=== PATIENT | female | born 1990 | race Caucasian/White ===

== ENCOUNTER 2021-05-16 11:17 | Outpatient (REF) | payer OTHER, SELFPAY ==
[2021-05-16 12:21] LABS: Influenza A PCR NEGATIVE (Negative); Influenza B PCR NEGATIVE (Negative); Resp Syncy Virus RNA Qual PCR NEGATIVE (Negative); SARS COV2 PCR INHOUSE NEGATIVE (Negative)
== END 2021-05-16 11:18 | disposition home or self-care (01) ==
LOC: HO.LNP 11:17
PROVIDERS: Visit Provider Internal Medicine
DX: R43.9 Unspecified disturbances of smell and taste (principal); Z20.822 Contact with and (suspected) exposure to COVID-19
CPT/HCPCS: 0241U

== ENCOUNTER 2021-12-21 22:10 | Emergency (ER) | payer OTHER, SELFPAY ==
--- NOTE | ~2021-12-21 | CT_ITS ---
EXAMINATION: CT HEAD WITHOUT CONTRAST CLINICAL INFORMATION: EtOH. Fall. Loss of consciousness. COMPARISON: CT head from 09/17/2007. TECHNIQUE: Contiguous axial imaging was performed from the skull base to vertex without intravenous administration of contrast. This CT examination was performed using dose optimization techniques as appropriate, variously including the following: *Automated exposure control. *Adjustment of mA and/or kV according to patient size (this includes techniques or standardized protocols for targeted exams where dose is matched to indication/reason for exam; i.e. extremities or head). *Use of iterative reconstruction technique. DLP: 631 mGy-cm FINDINGS: There is no evidence of acute intracranial hemorrhage or edematous territorial infarction. There is no abnormal attenuation within the brain parenchyma. Swartz-white matter differentiation is preserved. The ventricles are normal in size and configuration. No evidence for obstructive hydrocephalus. No abnormal mass effect or midline shift. No extra-axial fluid collections. No acute soft tissue or osseous abnormalities. Moderate mucosal thickening of the visualized paranasal sinuses. Small layering fluid collections within the bilateral maxillary sinuses. Mild leftward nasal septal deviation. Small right-sided mastoid effusion. The left-sided mastoid air cells and middle ear cavity are clear. CT/CT head/brain wo con IMPRESSION: 1. No evidence of acute intracranial hemorrhage or edematous territorial infarction. 2. Moderate sinonasal mucosal disease.
--- NOTE | 2021-12-21 22:13 | ED.ALCOHOL ---
HPI - Alcohol General Stated Complaint: etoh and fall Related Data Home Medications Medication Instructions Recorded Confirmed albuterol sulfate 90 mcg/actuation 1 inh inhalation Q4H PRN 08/17/20 08/17/20 breath activated powder inhaler fluticasone 232 mcg-salmeterol 14 1 inh inhalation BID 08/17/20 08/17/20 mcg/actuation breath activated powdr multivitamin (Daily Multi-Vitamin) 1 tab PO DAILY 08/17/20 08/17/20 Previous Rx's Medication Instructions Recorded hydrocortisone 2.5 % topical cream 1 appl topical BEDTIME PRN skin 08/17/20 irritation 30 days #30 grams fluticasone propionate 50 1 spray intranasal DAILY #9.9 mL 05/16/21 mcg/actuation nasal spray,suspension (Flonase Allergy Relief) Allergies Allergy/AdvReac Type Severity Reaction Status Date / Time animal dander [ANIMAL HAIR] Allergy Unknown HIVES Unverified 05/16/21 09:51 apple Allergy Unknown unknown Verified 05/16/21 09:51 cat dander Allergy Unknown unknown Verified 05/16/21 09:51 dog dander Allergy Unknown unknown Verified 05/16/21 09:51 house dust Allergy Unknown unknown Verified 05/16/21 09:51 SEASONAL ALLERGIES Allergy Mild CONGESTION Uncoded 05/16/21 09:51 CILANTRO Allergy Unknown ANGIOEDEMA Uncoded 05/16/21 09:51 [facility] Family History Family History (Updated 08/31/20 @ 10:53 by Kandy Acosta, RMA, LIME VAT TENDER) Father No problems noted. Mother No problems noted. Maternal Grandmother No problems noted. Maternal Grandfather HTN (hypertension) Diabetes mellitus High cholesterol Discharge Plan Discharge Prescriptions: No Action multivitamin [Daily Multi-Vitamin] Tablet 1 tab PO DAILY fluticasone propion-salmeterol 232-14 mcg/actuation aerosol powdr breath activated 1 inh inhalation BID albuterol sulfate 90 mcg/actuation aerosol powdr breath activated 1 inh inhalation Q4H PRN hydrocortisone 2.5 % cream 1 appl topical BEDTIME PRN (Reason: skin irritation) 30 Days Qty: 30 0RF fluticasone propionate [Flonase Allergy Relief] 50 mcg/actuation spray,suspension 1 spray intranasal DAILY Qty: 9.9 1RF Rx Instructions: administer into each nostril
[2021-12-21 22:19] VITALS: BP 116/64; BP 124/60; PULSE 79; PULSE 80; RESP 18; O2SAT 97; O2SAT 98; BMI 24.9
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
[2021-12-21 23:17] LABS: UPreg QC Valid YES; Urine Pregnancy NEGATIVE (NEGATIVE)
== END 2021-12-22 00:03 | disposition home or self-care (01) ==
PROVIDERS: Nurse Practitioner Family; Emergency Provider Emergency Medicine; PCP Internal Medicine
DX: S09.90XA Unspecified injury of head, initial encounter (principal); S00.83XA Contusion of other part of head, initial encounter; W17.89XA Other fall from one level to another, initial encounter; Y93.01 Activity, walking, marching and hiking; Y92.511 Restaurant or cafe as the place of occurrence of the external cause; Y99.9 Unspecified external cause status
CPT/HCPCS: 70450; 81025; 99283; 99284

== ENCOUNTER 2022-09-11 18:54 | Emergency (ER) | payer OTHER, SELFPAY ==
[2022-09-11 19:02] VITALS: BMI 25.7
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
[2022-09-11 19:12] VITALS: BP 113/62; PULSE 67; RESP 15; TEMP 36.4; O2SAT 93
[2022-09-11 19:16] VITALS: O2SAT 97
[2022-09-11 19:48] LABS: MANUAL DIFF FLAG NO
[2022-09-11 19:56] LABS: Basophils Percent Auto 0.5 % (0-2); Eosinophils Absolute Auto 0.7 X10*3/uL (0.0-0.4); Eosinophils Percent Auto 11.6 % (0-4); Hematocrit 39.3 % (37.0-47.0); Hemoglobin 13.3 g/dl (12.0-16.0); Imm Gran Abs Auto 0.01 X10*3/uL (0.00-0.03); Imm Gran Pct Auto 0.2 % (0.0-0.4); Lymphocytes Absolute Auto 1.5 X10*3/uL (1.2-4.9); Lymphocytes Percent Auto 25.7 % (20-40); Mean Corpuscular HGB Conc 33.8 g/dl (31.0-35.0); Mean Corpuscular Hemoglobin 30.4 pg (27.0-33.0); Mean Corpuscular Volume 89.7 fL (80.0-98.0); Mean Platelet Volume 9.8 fL (9.4-12.3); Monocytes Absolute Auto 0.3 X10*3/uL (0.1-1.2); Monocytes Percent Auto 5.8 % (2-11); Neutrophils Absolute Auto 3.2 x10*3/uL (2.0-8.3); Neutrophils Percent Auto 56.2 % (45-73); Platelet Count 237 X10*3/uL (160-400); Red Blood Count 4.38 X10*6/uL (4.20-5.50); Red Cell Distribution Width 12.7 % (11.0-16.0); White Blood Count 5.7 X10*3/uL (4.8-10.8)
[2022-09-11 20:03] LABS: Amphetamine Screen Urine Not Detected (Not Detect); Barbiturates, Urine Not Detected (Not Detect); Benzodiazepines Screen Urine Not Detected (Not Detect); Cannabinoid Screen Urine Not Detected (Not Detect); Cocaine Screen Urine Not Detected (Not Detect); Fentanyl, urine Not Detected (Not Detect); Opiate Screen Urine Not Detected (Not Detect); Phencyclidine Screen Urine Not Detected (Not Detect)
[2022-09-11 20:10] LABS: COVID-19 Test Negative (Negative); IDNOW Serial# BCCEAD1C
[2022-09-11 20:11] LABS: Acetaminophen LAB < 17 mcg/mL (<30); Alanine Aminotransferase 20 U/L (0-31); Albumin Level 4.4 g/dL (3.5-5.0); Alkaline Phosphatase 106 U/L (39-117); Anion Gap 13 (12-20); Aspartate Amino Transferase 17 U/L (5-31); Bilirubin Total 0.2 mg/dL (0.0-1.0); Blood Urea Nitrogen 7 mg/dL (9-16); Calcium 8.8 mg/dL (8.4-10.2); Carbon Dioxide 23 mmol/L (22-29); Chloride 112 mmol/L (96-108); Creatinine Clr Calc Pharmacy 108.9; Estimated Glomerular Filt Rate > 60; Ethanol 169 mg/dL; Glucose Random 104 mg/dL (60-115); Potassium 3.7 mmol/L (3.3-5.1); Salicylate < 5.0 mg/dL (15-30); Sodium 144 mmol/L (135-145); Total Protein 7.1 g/dL (6.5-8.0)
--- NOTE | 2022-09-11 21:28 | MHC.EDTECH ---
This tech brought patient to pump in the linen closet to give her privacy,this tech stayed one on one with patient until finished.Rn aware
[2022-09-11] MEDS: diphenhydrAMINE HCL 25 MG CAPSULE PO (22:25)
[2022-09-11] MEDS: clonazePAM 0.5 MG TABLET PO (22:25)
[2022-09-11] MEDS: OLANZapine 5 MG TABLET PO (22:25)
[2022-09-11 22:52] LABS: Appearance Urine Clear; Color Urine Yellow; Glucose Urine UA Negative (Negative); Leukocyte Esterase Urine Negative (Negative); Nitrite Urine Negative (Negative); PH 6.5 (5.0-9.0); Specific Gravity - Urine <= 1.005 (1.005-1.025); Urine Blood Negative (Negative); Urine Ketones Negative (Negative); Urine Protein Negative (Neg-Trace)
[2022-09-12 03:38] VITALS: BP 112/56; PULSE 74; RESP 15; TEMP 36.4; O2SAT 96
--- NOTE | 2022-09-12 06:09 | PC.NURSE ---
Patient slept through the night, no distress observed/reported, Olanzapine 5 mg PO administered at 2225 with PRN Klonopin and Benadryl with + effect, behavior non concerning, mood labile, tearful at time, medication compliant, VSS, patient needs help with breast pump, will continue to monitor.
[2022-09-12] MEDS: Loratadine 10 MG TABLET PO (08:20)
--- NOTE | 2022-09-12 08:34 | PC.NURSE ---
Called pharmacy for medication that is not available in the ED. Pts bedside for a visit.
[2022-09-12] MEDS: Vortioxetine Hydrobromide 20 MG TABLET PO (09:44)
[2022-09-12 09:47] VITALS: BP 123/51; PULSE 84; RESP 19; TEMP 36.2; O2SAT 98
--- NOTE | 2022-09-12 11:36 | PM.PSYCN ---
History of Present Illness Date of Service: 09/12/2022 Chief Complaint: crisis Reason for Consult: SI Discussed with referring provider: Yes Sources of Information: patient interviewed, chart reviewed and crisis/core team assessment reviewed HPI Narrative: Mrs. Whittington is a 31 year-old mother of two who self presented to [facility] [place] ED reporting increase depression, and thoughts of demons getting into her house. In the ED utox is negative. Pt seen with by her side. Pt reports increased depressed mood for few months. She does report she has struggled with depression for several years and feels that antidepresant, Trintellix has been very beneficial. However, after she had her now 1 year old baby she decrease dose of trintellix as she is currently . Pt also reports some recurrent thoughts about bad energy coming from her phone. She reports as she thinks about this, it sounds crazy, I know it not real. She denies any visual or auditory hallucinations. reports he notes that she has been more depressed, no safety concerns in terms of suicidal or homicidal ideation. denies any signs of psychosis or delusional thinking. He does report it was brief report of fear due to demons. She has a psychiatric prescriber. No therapist. She is open to increase dose of trintellix. She adamantly denies any thoughts of wanting to hurt herself or others. also denies any safety concerns and advocate for discharge home with additional supports, mainly referral for therapy. No prior hx of suicide attempts. Medical Evaluation Reviewed: Yes [facility] Medical History Concussion Depression Seasonal allergies Diagnostics Vital Signs (24Hr): Vital Signs - 24 hr 09/11/22 19:12 09/11/22 19:16 09/12/22 03:38 Temperature 97.6 F 97.6 F Pulse Rate 67 74 Respiratory Rate 15 15 Blood Pressure 113/62 112/56 L Pulse Oximetry 93 97 96 Oxygen Delivery Method Room Air Room Air Room Air 09/12/22 09:47 Temperature 97.1 F Pulse Rate 84 Respiratory Rate 19 Blood Pressure 123/51 L Pulse Oximetry 98 Oxygen Delivery Method Room Air BMI result Body Mass Index 25.7 Labs 09/11/22 19:36 09/11/22 19:36 Labs: Laboratory Results - last 48 hr 09/11/22 09/11/22 09/11/22 19:36 19:36 19:36 WBC 5.7 RBC 4.38 Hgb 13.3 Hct 39.3 MCV 89.7 MCH 30.4 MCHC 33.8 RDW 12.7 Plt Count 237 MPV 9.8 Immature Gran % (Auto) 0.2 Neut % (Auto) 56.2 Lymph % (Auto) 25.7 [place] % (Auto) 5.8 Eos % (Auto) 11.6 H Baso % (Auto) 0.5 Lymph # (Auto) 1.5 [place] # (Auto) 0.3 Eos # (Auto) 0.7 H Baso # (Auto) 0.0 Abs Immat Gran (auto) 0.01 Absolute Neuts (auto) 3.2 Absolute Nucleated RBC 0.000 Nucleated RBC % (auto) 0.0 Sodium 144 Potassium 3.7 Chloride 112 H Carbon Dioxide 23 Anion Gap 13 BUN 7 L Creatinine 0.60 Estim Creat Clear Calc 108.9 Estimated GFR > 60 Random Glucose 104 Calcium 8.8 Magnesium 2.0 Total Bilirubin 0.2 AST 17 ALT 20 Alkaline Phosphatase 106 Total Protein 7.1 Albumin 4.4 Urine Color Urine Appearance Urine pH Ur Specific [place] Urine Protein Urine Glucose (UA) Urine Ketones Urine Blood Urine Nitrite Ur Leukocyte Esterase Salicylates < 5.0 L Urine Opiates Screen Urine Fentanyl Screen Acetaminophen < 17 Ur Barbiturates Screen Ur Phencyclidine Scrn Ur Amphetamines Screen U Benzodiazepines Scrn Urine Cocaine Screen U Marijuana (THC) Screen Ethyl Alcohol 169 COVID-19 (DINO) Negative COVID-19 Clin Com See Note 09/11/22 09/11/22 19:41 19:41 WBC RBC Hgb Hct MCV MCH MCHC RDW Plt Count MPV Immature Gran % (Auto) Neut % (Auto) Lymph % (Auto) [place] % (Auto) Eos % (Auto) Baso % (Auto) Lymph # (Auto) [place] # (Auto) Eos # (Auto) Baso # (Auto) Abs Immat Gran (auto) Absolute Neuts (auto) Absolute Nucleated RBC Nucleated RBC % (auto) Sodium Potassium Chloride Carbon Dioxide Anion Gap BUN Creatinine Estim Creat Clear Calc Estimated GFR Random Glucose Calcium Magnesium Total Bilirubin AST ALT Alkaline Phosphatase Total Protein Albumin Urine Color Yellow Urine Appearance Clear Urine pH 6.5 Ur Specific [place] <= 1.005 Urine Protein Negative Urine Glucose (UA) Negative Urine Ketones Negative Urine Blood Negative Urine Nitrite Negative Ur Leukocyte Esterase Negative Salicylates Urine Opiates Screen Not Detected Urine Fentanyl Screen Not Detected Acetaminophen Ur Barbiturates Screen Not Detected Ur Phencyclidine Scrn Not Detected Ur Amphetamines Screen Not Detected U Benzodiazepines Scrn Not Detected Urine Cocaine Screen Not Detected U Marijuana (THC) Screen Not Detected Ethyl Alcohol COVID-19 (DINO) COVID-19 Clin Com Mental Status Exam Mental Status Exam Narrative: Appearance: wearing hospital gown, fair hygiene, in NAD Behavior: pleasant and cooperative TP: linear TC: no signs of psychosis, seeking additional help Speech: clear, normal rate/rhythm/volume, spontaneous Psychomotor: no agitation or retardation noted Mood: better Affect: congruent, brightens at times SI: denies HI: denies VH/AH: none Insight/judgment: fair x 2. Memory/cog: alert, oriented x 3. grossly intact to conversational testing. Medications Medications Current Medications Albuterol Sulfate (Albuterol Sulfate 90 Mcg 8 Gm Inhaler) 1 puff INHALE Q4H PRN PRN Reason: Shortness Of Breath Or Wheezing Clonazepam (Clonazepam 0.5 Mg Tablet) 0.5 mg PO BEDTIME PRN PRN Reason: Anxiety Last Admin: 09/11/22 22:25 Dose: 0.5 mg Diphenhydramine HCl (Diphenhydramine Hcl 25 Mg Capsule) 25 mg PO BEDTIME PRN PRN Reason: Insomnia Last Admin: 09/11/22 22:25 Dose: 25 mg Loratadine (Loratadine 10 Mg Tablet) 10 mg PO DAILY [facility] Last Admin: 09/12/22 08:20 Dose: 10 mg Vortioxetine (Vortioxetine Hydrobromide 20 Mg Tablet) 20 mg PO DAILY [facility] Last Admin: 09/12/22 09:44 Dose: 20 mg Allergies Allergies Allergy/AdvReac Type Severity Reaction Status Date / Time animal dander [ANIMAL HAIR] Allergy Unknown HIVES Unverified 05/16/21 09:51 apple Allergy Unknown unknown Verified 05/16/21 09:51 cat dander Allergy Unknown unknown Verified 05/16/21 09:51 dog dander Allergy Unknown unknown Verified 05/16/21 09:51 house dust Allergy Unknown unknown Verified 05/16/21 09:51 SEASONAL ALLERGIES Allergy Mild CONGESTION Uncoded 05/16/21 09:51 CILANTRO Allergy Unknown ANGIOEDEMA Uncoded 05/16/21 09:51 Assessment & Plan Assessment & Plan (1) MDD (major depressive disorder), recurrent episode, moderate: Status: Acute Code(s): F33.1 - Major depressive disorder, recurrent, moderate Plan Mrs. Whittington is a 31 year-old woman with hx of MDD. Pt reports long hx of depression, trauma. She reports argument with mother who disclosed trauma hx ot friend which really upset pt. Pt reports also some thoughts of demons coming to her house briefly but also notes that this makes no sense. Pt reports lower dose of trintellix since she gave over one year ago as she has been . She denies SI/HI. She reports coming to ED asking for additional supports such as therapy. by her side and denies safety concerns nor signs of psychosis. Pt has OP psychiatric prescribed with upcoming appointment. Pt open to increase dose. Total time managing care of this patient today ____ minutes.
--- NOTE | 2022-09-12 13:05 | MHC.CARE ---
Pt has been referred to [facility]
--- NOTE | 2022-09-12 13:05 | MHC.CARE ---
CARE Team has reached out to Ms. Miriam Torres, a psychiatrist that specializes in post partem depression. CARE Team awaits her response so that a referral can be done.
--- NOTE | 2022-09-12 13:40 | MHC.CARE ---
Pt has been referred to the [facility] virtual Partial Hospitalization program.
--- NOTE | 2022-09-12 14:02 | MHC.CARE ---
CARE Team referred pt to [facility]'s [facility]. CARE Team called pt to secure an e mail address, no answer, left a message to return call. The e mail address is necessary to the completion of this referral.
--- NOTE | 2022-09-13 08:58 | MHC.CARE ---
CARE Team left message for Pt
== END 2022-09-12 13:09 | disposition home or self-care (01) ==
PROVIDERS: Physician Assistant; Emergency Provider Emergency Medicine; PCP Internal Medicine
DX: O99.345 Other mental disorders complicating the puerperium (principal); Z20.822 Contact with and (suspected) exposure to COVID-19; Z20.828 Contact with and (suspected) exposure to other viral communicable diseases; Z79.899 Other long term (current) drug therapy
CPT/HCPCS: 36415; 80053; 80143; 80179; 80307; 81003; 82077; 83735; 85025; 87635; 99284; S9485

== ENCOUNTER 2023-02-24 01:59 | Emergency (ER) | payer OTHER, SELFPAY ==
[2023-02-24 02:05] VITALS: BP 129/72; BP 152/86; PULSE 80; PULSE 90; RESP 12; TEMP 36.4; O2SAT 97; O2SAT 99; BMI 26.4
--- NOTE | 2023-02-24 02:10 | ED.ALLEREA ---
HPI - Allergic Reaction General Chief complaint: Allergic Reaction Stated complaint: Allergic Reaction Time Seen by Provider: 02/24/23 02:07 Source: patient Mode of arrival: EMS Limitations: no limitations History of Present Illness HPI narrative: Patient comes to the emergency room complaining of an allergic reaction. Patient states that she is known to be highly allergic to cat dander. Patient states that she does have a cat. Usually she does not touch the cat. But patient touched this time because the cat was in a lot of pain. Patient washed her hands immediately but still she developed facial swelling, shortness of breath, wheezing. Patient give herself 2 nebulization treatments, took 2 tablets of Benadryl. Her symptoms improved. However, she still has facial swelling, flushing, no airway compromise. EMS brought her to the emergency room Related Data Home Medications Medication Instructions Recorded Confirmed albuterol sulfate 90 mcg/actuation 1 inh inhalation Q4H PRN Shortness 08/17/20 09/11/22 breath activated powder inhaler Of Breath Or Wheezing clonazepam 0.5 mg tablet 1 tab PO BEDTIME PRN Anxiety 09/11/22 09/11/22 diphenhydramine HCl 25 mg capsule 25 mg PO BEDTIME PRN Insomnia 09/11/22 09/11/22 (Benadryl) loratadine 10 mg tablet 10 mg PO QAM 09/11/22 09/11/22 vortioxetine 20 mg tablet 1 tab PO QAM 09/11/22 09/11/22 (Trintellix) Previous Rx's Medication Instructions Recorded epinephrine 0.3 mg/0.3 mL 0.3 mg (0.3 mL) IM Q4H PRN 02/24/23 injection, auto-injector (EpiPen) anaphylaxis #2 ea famotidine 20 mg tablet (Pepcid) 20 mg PO DAILY #3 tabs 02/24/23 prednisone 20 mg tablet 20 mg PO DAILY #3 tabs 02/24/23 Allergies Allergy/AdvReac Type Severity Reaction Status Date / Time animal dander [ANIMAL HAIR] Allergy Unknown HIVES Verified 02/24/23 02:47 apple Allergy Unknown unknown Verified 02/24/23 02:47 cat dander Allergy Unknown unknown Verified 02/24/23 02:47 dog dander Allergy Unknown unknown Verified 02/24/23 02:47 house dust Allergy Unknown unknown Verified 02/24/23 02:47 SEASONAL ALLERGIES Allergy Mild CONGESTION Uncoded 05/16/21 09:51 CILANTRO Allergy Unknown ANGIOEDEMA Uncoded 05/16/21 09:51 Review of Systems Review of Systems: Constitutional : No Weight loss, No Fever, No Chills, No Night Sweats, No Fatigue, No Malaise ENT/Mouth : No Hearing loss, No Ear Pain, No Nasal Congestion, No Sinus Pain, No Hoarseness, No sore throat, No Rhinorrhea, No Swallowing Difficulty Eyes: No Eye Pain, No Swelling, No Redness, No Foreign Body, No Discharge, No Vision Changes Cardiovascular : No Chest Pain, No SOB, No Dyspnea on Exertion, No Orthopnea, No Edema, No Palpitations Respiratory : Complaining of wheezing Gastrointestinal : No Nausea, No Vomiting, No Diarrhea, No Constipation, No abdominal Pain, No Hematochezia, No Melena Genitourinary : no irregular bleeding, No Dysuria, No Urinary Frequency, No Hematuria, No Urinary Incontinence, No Urgency, No Flank Pain, No Urinary Flow Changes, No Hesitancy Musculoskeletal : No joint pain, No Myalgias, No Joint Swelling Skin : Complaining of diffuse flushing and hives Neuro : No Weakness, No Numbness, No Paresthesias, No Loss of Consciousness, No Dizziness, No Headache Psych : No Anxiety/Panic, No Depression, No SI/HI/AH/VH, No Social Issues, Heme/Lymph: No Bruising, No Bleeding,No Lymphadenopathy Endocrine : No Polyuria, No Polydipsia, No Temperature Intolerance PMFSH Past Medical History Medical History Concussion Depression Seasonal allergies Family History Family History Father No problems noted. Mother No problems noted. Maternal Grandmother No problems noted. Maternal Grandfather HTN (hypertension) Diabetes mellitus High cholesterol Social History Social History Alcohol intake: current Alcohol intake frequency: 0-2 drinks per day Alcohol type: hard liquor Patient Tobacco Use Status: Former Tobacco user Advance Directives: No Advance Directives Information Provided: No Physical Exam ED Vital Signs: Vital Signs - 24 hr 02/24/23 02:05 02/24/23 03:20 Temperature 97.6 F 97.5 F Pulse Rate 80 91 Respiratory Rate 12 18 Blood Pressure 129/72 112/58 L Pulse Oximetry 97 99 Oxygen Delivery Method Room Air Room Air BMI result Body Mass Index 26.4 Const Other: Appearance: Alert. Oriented X3. No acute distress. Eyes: Pupils equal, round and reactive to light. ENT: Pharynx normal. No angioedema Neck: Normal inspection. Neck supple. No lymph nodes noted. No crepitus CVS: Normal heart rate and rhythm. Pulses normal. Normal S1 and S2 Respiratory: No respiratory distress. Breath sounds normal. No Wheezing. No rales Abdomen: Soft and nontender. No rigidity. No distention. Skin: Diffuse flushing, hives Extremities: No lower extremity edema. No Lacerations. No Rash Neuro: Oriented X 3. No motor deficit. No sensory deficit. Moving all extremities. No slurred speech. CN 2 through 12 grossly intact Psych: calm, cooperative, normal affect Course Course Course Narrative: Patient getting IV fluids, Benadryl, Pepcid, Solu-Medrol Medications Administered Discontinued Medications Generic Name Dose Route Start Last Admin Trade Name Freq PRN Reason Stop Dose Admin Diphenhydramine HCl 50 mg 02/24/23 02:07 02/24/23 02:19 Diphenhydramine Hcl 50 Mg/Ml Vial IVPUSH 02/24/23 02:08 50 mg ONCE ONE Administration Famotidine 20 mg 02/24/23 02:07 02/24/23 02:19 Famotidine/Pf 20 Mg/2 Ml Vial IVPUSH 02/24/23 02:08 20 mg ONCE ONE Administration Hydroxyzine HCl 25 mg 02/24/23 03:43 02/24/23 03:52 Hydroxyzine Hcl 25 Mg Tablet PO 02/24/23 03:44 25 mg ONCE ONE Administration Sodium Chloride 1,000 mls @ 999 mls/hr 02/24/23 02:15 02/24/23 02:48 Ns IVCONT 02/24/23 03:15 999 mls/hr .Q1H1M ONE Administration Methylprednisolone Sodium Succinate 125 mg 02/24/23 02:07 02/24/23 02:19 Methylprednisolone Sod Succ 125 Mg/2 Ml Vial IVPUSH 02/24/23 02:08 125 mg ONCE ONE Administration Ondansetron HCl 4 mg 02/24/23 03:10 02/24/23 03:52 Ondansetron Hcl 4 Mg/2 Ml Vial IVPUSH 02/24/23 03:11 4 mg ONCE ONE Administration Medical Decision Making Medical Decision Making MDM Narrative: -30 medications, patient started feeling much better, the hives disappeared, airway completely clear, no wheezing. Patient stated that she felt a little bit itchy, given 1 dose of hydroxyzine. After that dose, patient is asymptomatic. -discussed with the patient talking to his primary care physician about a referral to immunology, patient has severe allergies to multiple very common allergens Differential Diagnosis Differential Diagnoses: The differential diagnosis associated with the presentation includes (Allergic reaction, anaphylaxis, urticaria) Admission/Observation Consideration of admission/observation: Escalation of care including admission/observation considered (Patient came in with a significant allergic reaction, patient was considered) Critical Care Time Critical Care Time Critical Care Time: Yes Total Critical Care Time: 60 Attestation: I have personally provided critical care time. Time includes review of lab data, radiology results, discussion with consultants, and monitoring for potential decompensation. Intervention performed as documented. Discharge Plan Discharge Clinical Impression: Allergic reaction Patient Disposition: Home, Self-Care Instructions: General Allergic Reaction (ED) Additional Instructions: Please follow-up with your primary care physician tomorrow. If you have any worsening or new symptoms, please return to the emergency room or call 911 Prescriptions: New prednisone 20 mg tablet 20 mg PO DAILY Qty: 3 0RF famotidine [Pepcid] 20 mg tablet 20 mg PO DAILY Qty: 3 0RF epinephrine [EpiPen] 0.3 mg/0.3 mL auto-injector 0.3 mg IM Q4H PRN (Reason: anaphylaxis) Qty: 2 0RF No Action Trintellix 20 mg tablet 1 tab PO QAM clonazepam 0.5 mg tablet 1 tab PO BEDTIME PRN (Reason: Anxiety) loratadine 10 mg Tablet 10 mg PO QAM diphenhydramine HCl [Benadryl] 25 mg Capsule 25 mg PO BEDTIME PRN (Reason: Insomnia) albuterol sulfate 90 mcg/actuation aerosol powdr breath activated 1 inh inhalation Q4H PRN (Reason: Shortness Of Breath Or Wheezing)
[2023-02-24] MEDS: diphenhydrAMINE HCL 50 MG/ML VIAL IVPUSH (02:19)
[2023-02-24] MEDS: methylPREDNISolone Sod Succ 125 MG/2 ML VIAL IVPUSH (02:19)
[2023-02-24] MEDS: Famotidine/PF 20 MG/2 ML VIAL IVPUSH (02:19)
[2023-02-24] MEDS: 0.9 % Sodium Chloride 1,000 ML 999 ML IVCONT (02:48)
--- NOTE | 2023-02-24 03:15 | PC.NURSE ---
this rn assumed care of pt @ 0200. pt medicated according to tyshawn. dr fernandez at bedside. lung sounds clear
[2023-02-24 03:20] VITALS: BP 112/58; PULSE 91; RESP 18; TEMP 36.4; O2SAT 99
[2023-02-24] MEDS: hydrOXYzine HCL 25 MG TABLET PO (03:52)
[2023-02-24] MEDS: ondansetron HCL 4 MG/2 ML VIAL IVPUSH (03:52)
[2023-02-24 05:18] VITALS: BP 111/58; PULSE 101; RESP 16; TEMP 36.9; O2SAT 96
--- NOTE | 2023-02-24 05:24 | PC.NURSE ---
pt ambulatory at discharge. family at bedside. iv removed. pt provided with discharge packet. pt verbalized understanding of discharge plan.
== END 2023-02-24 05:25 | disposition home or self-care (01) ==
PROVIDERS: Emergency Provider Emergency Medicine; PCP Internal Medicine
DX: L50.0 Allergic urticaria (principal); Z87.891 Personal history of nicotine dependence; Z79.899 Other long term (current) drug therapy
CPT/HCPCS: 99284; J1200; J2405; J2930

== ENCOUNTER 2023-06-26 08:49 | Outpatient (AMB) | payer OTHER, SELFPAY ==
--- NOTE | 2023-06-26 10:16 | MHC.OFFWIV ---
Intake Vital Signs 06/26/23 10:28 Height 5 ft Weight 135 lb 2 oz BMI 26.4 BP 112/70 Blood Pressure Location Rt brachial Position Sitting Pulse 97 Pulse Source Pulse Oximeter Temp 97.8 F Temp Source Temporal Artery Scan Pulse Oximetry (%) 99 Oxygen Delivery Method Room Air Intake Visit Reasons: EP, sore throat,headache,neck pain ([phone]) Intake Note: Pt is here c/o sore throat, headache and neck since yesterday morning. Patient Tobacco Use Status: Former Tobacco user Allergies animal dander [ANIMAL HAIR] Allergy (Unknown, Verified 06/26/23 10:18) HIVES apple Allergy (Unknown, Verified 06/26/23 10:18) unknown cat dander Allergy (Unknown, Verified 06/26/23 10:18) unknown dog dander Allergy (Unknown, Verified 06/26/23 10:18) unknown house dust Allergy (Unknown, Verified 06/26/23 10:18) unknown SEASONAL ALLERGIES Allergy (Mild, Uncoded 06/26/23 10:18) CONGESTION CILANTRO Allergy (Unknown, Uncoded 06/26/23 10:18) ANGIOEDEMA Medication List - Last Reconciled 06/26/23 by Ligia Fry PA-C albuterol sulfate 90 mcg/actuation 1 inh inhalation Q4H PRN albuterol sulfate 90 mcg/actuation 1 inh inhalation QID PRN amoxicillin-pot clavulanate 875-125 mg 1 tab PO BID clonazepam 1 tab PO BEDTIME PRN diphenhydramine HCl (Benadryl) 25 mg PO BEDTIME PRN epinephrine (EpiPen) 0.3 mg (0.3 mL) IM Q4H PRN famotidine (Pepcid) 20 mg PO DAILY loratadine 10 mg PO QAM vortioxetine (Trintellix) 1 tab PO QAM Do you need a note to return to daycare/school/sports/work: No HPI HPI Comments History of Present Illness Details She presents to office with cold symptoms/neck pain 4am she woke up with neck stiffness, sore throat and congestion She said baseline runny nose She said + body aches and chills No temp taken + fatigue yesterday and remained in bed Motrin, vitamin C and zinc without relief Daughter + daycare and she is always sick but she is not sick She said neckache is 7/10 + headaches She tried inhaler last night and its empty; she had minimal cough without SOB or CP PFSH Medical History Concussion Depression Seasonal allergies Family History Father No problems noted. Mother No problems noted. Maternal Grandmother No problems noted. Maternal Grandfather HTN (hypertension) Diabetes mellitus High cholesterol Social History Alcohol intake: current Alcohol intake frequency: a few times a week Alcohol type: hard liquor Patient Tobacco Use Status: Former Tobacco user Review of Systems Const Reports body aches, Reports chills, Reports fatigue, Denies fever(s), Denies frequent falls, Reports headache(s) and Reports malaise Eyes Denies blurry vision and Denies diplopia ENT Reports dizziness, Denies ear discharge, Reports otalgia, Reports headache(s), Reports nasal congestion, Reports nasal discharge, Reports neck pain, Reports post nasal drip, Reports sinus pressure, Reports sore throat, Denies throat swelling and Denies tongue swelling Card Denies chest pain Resp Reports cough and Denies hemoptysis GI Denies no additional complaints Musc Denies back pain, Reports myalgias and Reports neck pain Neuro Reports dizziness, Denies frequent falls, Reports headache(s) and Denies other (no HT or LOC) Endo Reports fatigue Aller/Immun Denies throat swelling and Denies tongue swelling Physical Exam Vital Signs: Last Vital Signs Temp 97.8 F 06/26/23 10:28 Pulse 97 06/26/23 10:28 BP 112/70 06/26/23 10:28 Pulse Ox 99 06/26/23 10:28 Oxygen Delivery Method Room Air 06/26/23 10:28 BMI result Body Mass Index 26.4 General: Non-toxic, NAD. Speaking full sentences. Tearful and appears uncomfortable Skin: Warm dry throughout. No facial or neck edema Eye: PERRL, EOMI HENT: Airway patent. Uvula midline. + pharyngeal erythema and R sided exudate. No edema. No CLINICAL LABORATORY MANAGER. No tongue edema Bilateral canals clear. TM + erythematous and bulging, R>L. No TM perforation or hemotympanum noted. Lymph: + bilateral lymphadenopathy noted to anterior cervical chain Neck No c-spine tenderness. + full ROM> No nuchal rigidity noted with Brudzinski Respiratory: CTA bilaterally. No wheezes, rales or rhonchi Cardiac: RRR. No murmur MSK: No midline tenderness. Full ROM extremities. Neurology: A/O. No aphasia or facial droop. Equal strength. Gait without abnormality Psych: Good mood and affect Results AMB Rapid Strep AMB Rapid Strep Negative Last Edit by Nida Smith CMA on 06/26/23 10:38 Results Reviewed Results Reviewed: Laboratory Last Values Strep Scn Rapid Clinic Negative 06/26/23 10:37 Assessment & Plan Assessment & Plan (1) Upper respiratory disease: Code(s): J39.9 - Disease of upper respiratory tract, unspecified Plan: strep negative lungs cta (2) Otitis media: Code(s): H66.90 - Otitis media, unspecified, unspecified ear Qualifiers: Chronicity: acute Laterality: bilateral Otitis media type: suppurative Recurrence: non-recurrent Spontaneous tympanic membrane rupture: without spontaneous rupture Qualified Code(s): H66.003 - Acute suppurative otitis media without spontaneous rupture of ear drum, bilateral Plan: + bilateral OM Augmentin Tylenol/Motrin Albterol refil Non-toxic without neuro deficit or menigitis concern. Discussed worsening s/s that warrant ED evaluation F/U with PCP RSV/FLu/Covid test pending. She will isolate at home Fluids/rest Patient gave verbal understanding and had no additional questions or concerns at time of discharge All questions answered Orders: Orders SARS-CoV2/FLU/RSV 06/26/23 J39.9 - Disease of upper respiratory tract, unspecified AMB Rapid Strep Screen 06/26/23 Z13.9 - Encounter for screening, unspecified Medications: New albuterol sulfate 90 mcg/actuation 1 inh inhalation QID PRN 6.7 grams 0RF shortness of breath or wheezing J39.9 - Disease of upper respiratory tract, unspecified amoxicillin-pot clavulanate 875-125 mg 1 tab PO BID 14 tabs 0RF H66.90 - Otitis media, unspecified, unspecified ear Coding Level of Care Code Est Pt Level 3 (51914) Diagnoses Upper respiratory disease J39.9 Non-recurrent acute suppurative otitis media of both ears without spontaneous rupture of tympanic membranes H66.003 Chronicity: acute Laterality: bilateral Otitis media type: suppurative Recurrence: non-recurrent Spontaneous tympanic membrane rupture: without spontaneous rupture
[2023-06-26 10:28] VITALS: BP 112/70; PULSE 97; TEMP 36.6; O2SAT 99; BMI 26.4
== END 2023-06-26 11:24 | disposition home or self-care (01) ==
PROVIDERS: PCP Internal Medicine; Visit Provider Physician Assistant
DX: J02.9 Acute pharyngitis, unspecified (principal)
CPT/HCPCS: 87880; 99213

== ENCOUNTER 2023-06-26 13:54 | Outpatient (REF) | payer OTHER, SELFPAY ==
[2023-06-26 15:21] LABS: Influenza A PCR NEGATIVE (Negative); Influenza B PCR NEGATIVE (Negative); Resp Syncy Virus RNA Qual PCR NEGATIVE (Negative); SARS COV2 PCR INHOUSE NEGATIVE (Negative)
== END 2023-06-26 13:55 | disposition home or self-care (01) ==
LOC: HO.HMGCLNP 13:54
PROVIDERS: Visit Provider Physician Assistant
DX: Z11.52 Encounter for screening for COVID-19 (principal); Z20.822 Contact with and (suspected) exposure to COVID-19; J39.9 Disease of upper respiratory tract, unspecified
CPT/HCPCS: 0241U

== ENCOUNTER 2023-07-03 11:47 | Emergency (ER) | payer OTHER, SELFPAY ==
--- NOTE | ~2023-07-03 | CT_ITS ---
EXAMINATION: CT HEAD WITHOUT CONTRAST CLINICAL INFORMATION: Syncope. COMPARISON: None available. TECHNIQUE: Contiguous axial imaging was performed from the skull base to vertex without intravenous administration of contrast. This CT examination was performed using dose optimization techniques as appropriate, variously including the following: *Automated exposure control *Adjustment of mA and/or kV according to patient size (this includes techniques or standardized protocols for targeted exams where dose is matched to indication/reason for exam; i.e. extremities or head) *Use of iterative reconstruction technique DLP: 586.0 mGy-cm FINDINGS: The lateral, third and fourth ventricles are normally outlined. The cortical sulci and basal cisterns are normally outlined as well. There is no acute territorial defect, hemorrhage or midline shift. The extra-axial spaces are unremarkable. Calvarium: Intact. Maxillofacial sinuses and mastoids: There are ethmoid and left maxillary sinus opacities as well as right maxillary and sphenoid sinus mucosal thickening. The mastoids are clear. CT/CT head/brain wo IV con IMPRESSION: No acute intracranial abnormality. Ethmoid and left maxillary sinus mucosal thickening and opacities of uncertain acuity and current significance.
--- NOTE | ~2023-07-03 | CT_ITS ---
EXAMINATION: CT MASTOID SINUSES, BILATERAL CLINICAL INDICATION: Bilateral ear pain. History of otitis media not improving. COMPARISON: CT brain 07/03/2023. TECHNIQUE: 0.6 mm thin axial and reformatted 0.6 mm thin coronal images of petrous bone/mastoid sinuses are obtained. This CT examination was performed using dose optimization technique as appropriate, variously including the following: Automated exposure control Adjustment of MA and/or KV according to patient size(this includes techniques or standardized protocols for targeted exams where dose is matched to indication/reason for exam; extremities or head. Use of iterative reconstruction techniques. DLP 241.21 mGy-cm FINDINGS: There is normal aeration of bilateral mastoid sinuses without mucoperiosteal thickening or air-fluid level. The bony kaiser are intact. There is normal symmetry of middle ear ossicles without any mucosal thickening or soft tissue mass in either middle ear. Bilateral semicircular canals, otic capsule, vestibule and internal auditory canal are symmetric and normal. The vestibular duct appear symmetric as well without any erosive changes. Bilateral petrous bone appears unremarkable. There is normal symmetry of bilateral TM joints. There is diffuse mucoperiosteal thickening bilateral frontal, ethmoid, sphenoid and maxillary sinuses, consistent with chronic pansinusitis. There is no air-fluid level. The bony sinus kaiser, lamina papyracea and the cribriform plate appear unremarkable. The parapharyngeal soft tissues are symmetric and normal. The prevertebral soft tissues are normal. Visualized bilateral parotid glands are symmetric and normal. CT/CT mastoid IMPRESSION: Normal bilateral petrous and temporal bones. Normal symmetry of internal and external auditory canals and the middle ears without any soft tissue mass. The mastoid sinuses are clear. Chronic pansinusitis. No abnormal soft tissue mass seen in the parapharyngeal soft tissues.
--- NOTE | ~2023-07-03 | XR_ITS ---
EXAMINATION: XR CHEST CLINICAL INFORMATION: Syncope COMPARISON: None available. TECHNIQUE: Frontal view of the chest was obtained. FINDINGS: No significant abnormality is noted involving the heart, lungs, mediastinum, bony thorax or soft tissues. XR/XR chest 1V IMPRESSION: Unremarkable examination.
--- NOTE | 2023-07-03 11:53 | ECG_ITS ---
Test Reason : N/V, DIZZINESS Blood Pressure : / mmHG Vent. Rate : 067 BPM Atrial Rate : 067 BPM P-R Int : 114 ms QRS Dur : 080 ms QT Int : 416 ms P-R-T Axes : 055 070 065 degrees QTc Int : 439 ms Normal sinus rhythm Normal ECG No previous ECGs available Referred By: Michael Leonard Electronically Signed By:RADHA ANTHONY MD
[2023-07-03 11:56] VITALS: BP 130/78; PULSE 84; RESP 16; TEMP 37.1; O2SAT 98; BMI 21.8
--- NOTE | 2023-07-03 12:07 | ED.SYNCOPE ---
HPI - Syncope General Chief Complaint: Syncope Stated Complaint: Vomiting Dizzy Flu Symptoms Time Seen by Provider: 07/03/23 11:55 Source: patient Mode of arrival: ambulatory Limitations: no limitations History of Present Illness HPI narrative: This is a 32-year-old female presenting to the emergency department for evaluation of dizziness with syncopal episode prior to arrival and a syncopal episode while in the department. Patient reports she was walking to the bathroom became very dizzy and syncopized with positive loss of consciousness patient also had a syncopal episode while in triage. Patient reports she has dizziness, described as room spinning, no visual disturbances. She is currently being treated for bilateral ear infection and is on antibiotics. She reports this has happened to her before when she was . No history of DVT or PE. No chest pain, shortness of breath, headache, vision changes, weakness, nausea, vomiting, abdominal pain. NIH stroke scale 0 on arrival Related Data Home Medications Medication Instructions Recorded Confirmed albuterol sulfate 90 mcg/actuation 1 inh inhalation Q4H PRN Shortness 08/17/20 06/26/23 breath activated powder inhaler Of Breath Or Wheezing clonazepam 0.5 mg tablet 1 tab PO BEDTIME PRN Anxiety 09/11/22 06/26/23 diphenhydramine HCl 25 mg capsule 25 mg PO BEDTIME PRN Insomnia 09/11/22 06/26/23 (Benadryl) loratadine 10 mg tablet 10 mg PO QAM 09/11/22 06/26/23 vortioxetine 20 mg tablet 1 tab PO QAM 09/11/22 06/26/23 (Trintellix) Previous Rx's Medication Instructions Recorded epinephrine 0.3 mg/0.3 mL 0.3 mg (0.3 mL) IM Q4H PRN 02/24/23 injection, auto-injector (EpiPen) anaphylaxis #2 ea famotidine 20 mg tablet (Pepcid) 20 mg PO DAILY #3 tabs 02/24/23 albuterol sulfate 90 mcg/actuation 1 inh inhalation QID PRN shortness 06/26/23 aerosol inhaler of breath or wheezing #6.7 grams amoxicillin 875 mg-potassium 1 tab PO BID #14 tabs 06/26/23 clavulanate 125 mg tablet Allergies Allergy/AdvReac Type Severity Reaction Status Date / Time animal dander [ANIMAL HAIR] Allergy Unknown HIVES Verified 06/26/23 10:18 apple Allergy Unknown unknown Verified 06/26/23 10:18 cat dander Allergy Unknown unknown Verified 06/26/23 10:18 dog dander Allergy Unknown unknown Verified 06/26/23 10:18 house dust Allergy Unknown unknown Verified 06/26/23 10:18 SEASONAL ALLERGIES Allergy Mild CONGESTION Uncoded 06/26/23 10:18 CILANTRO Allergy Unknown ANGIOEDEMA Uncoded 06/26/23 10:18 Review of Systems Review of Systems: Constitutional : No Weight loss, No Fever, No Chills, No Fatigue, No Malaise ENT/Mouth : No sore throat, No Rhinorrhea Eyes: No Eye Pain, No Swelling, No Redness Cardiovascular : No Chest Pain, No SOB, No Dyspnea on Exertion, No Orthopnea, No Edema, No Palpitations Respiratory : No Cough, No Sputum, No Wheezing Gastrointestinal : + Nausea, + Vomiting, No Diarrhea, No Constipation, No abdominal Pain, No Hematochezia, No Melena Genitourinary : No Dysuria, No Urinary Frequency, No Hematuria, Musculoskeletal : No joint pain, No Myalgias, No Joint Swelling Skin : No Skin Lesions, No rash Neuro : No Weakness, No Numbness, + Dizziness, No Headache Psych : No Anxiety/Panic, No Depression All other systems reviewed and are negative Yes all other systems are reviewed and are negative [facility] Past Medical History Attestation statement: The following information was validated with the patient. Source: old records reviewed and nursing notes reviewed Medical History Concussion Depression Seasonal allergies Family History Family History Father No problems noted. Mother No problems noted. Maternal Grandmother No problems noted. Maternal Grandfather HTN (hypertension) Diabetes mellitus High cholesterol Social History Social History Alcohol intake: current Alcohol intake frequency: a few times a week Alcohol type: hard liquor Patient Tobacco Use Status: Former Tobacco user Advance Directives: No Advance Directives Information Provided: Yes Physical Exam Vital Signs: Vital Signs: Last Vital Signs Temp 98.5 F 07/03/23 14:54 Pulse 63 07/03/23 14:54 Resp 16 07/03/23 14:54 BP 106/49 L 07/03/23 14:54 Pulse Ox 100 07/03/23 14:54 O2 Del Method Room Air 07/03/23 14:54 BMI result Body Mass Index 21.8 Appearance: Alert.? Oriented X3.? No acute distress.? Head: Normocephalic, atraumatic, no step-offs or deformities Eyes: Pupils equal, round and reactive to light.? ENT: Pharynx normal.? Neck: Normal inspection.? Neck supple.? CVS: Normal heart rate and rhythm.? Pulses normal.? Respiratory: No respiratory distress.? Breath sounds normal.? Abdomen: Soft and nontender.? Skin: Skin warm and dry.? Normal skin color.? Normal skin turgor.? Extremities: No lower extremity edema.? No calf ttp. 5/5 strength to bilateral upper and lower extremities Neuro: Oriented X 3.? No motor deficit.? No sensory deficit. CN 2-12 intact . Normal [id number], [id number]. Negative Romberg and pronator drift. Course Reevaluation(s) Reevaluation #1: CBC with no acute findings. Chemistry unremarkable. Top negative, ekg non ischemic, heart score 0, no need for repeat. Dimer negative. Unlikely PE. Ethanol negative. Flu COVID RSV negative. CT pending Time: 13:25 Reevaluation #2: Patient now more alert reports shes still very dizzy. Now stating she has significant discomfort behind b/l ears in mastoid region. CT mastoid ordered at this time. Head CT still pending Patient will likely be admitted. Time: 15:38 Reevaluation #3: CT head ? sinus disease no ich or masses. CT mastoid pending patient should be admitted for syncope Sign out to Dan. REX Castañeda Time: 15:52 Medications Administered Discontinued Medications Generic Name Dose Route Start Last Admin Trade Name Luisq PRN Reason Stop Dose Admin Diazepam 2 mg 07/03/23 12:19 07/03/23 12:27 Diazepam 2 Mg Tablet PO 07/03/23 12:20 2 mg ONCE ONE Administration Sodium Chloride 1,000 mls @ 999 mls/hr 07/03/23 12:00 07/03/23 13:37 Ns IV 07/03/23 13:00 Infused .Q1H1M LIZZ Infusion Meclizine HCl 25 mg 07/03/23 11:54 07/03/23 12:27 Meclizine Hcl 25 Mg Tablet PO 07/03/23 11:55 25 mg ONCE ONE Administration Ondansetron HCl 4 mg 07/03/23 12:13 07/03/23 12:25 Ondansetron Hcl 4 Mg/2 Ml Vial IVPUSH 07/03/23 12:14 4 mg ONCE ONE Administration Medical Decision Making Medical Decision Making [facility] Narrative: 32-year-old female presents status post 2 syncopal episodes today currently being treated for bilateral otitis media, also reporting dizziness described as room spinning. Physical examination benign. Neurological assessment normal. Cerebellar function intact. This is likely vertigo and syncope. Will rule out metabolic derangements, pulmonary embolism, orthostatic hypotension, arrhythmias. Unlikely ACS, dissection. Will rule out . And viral illness. NIH stroke scale 0 unlikely intracranial hemorrhage, stroke, posterior stroke. Plan at this time Medical workup with labs, imaging, urine. Differential Diagnosis Differential Diagnoses: The differential diagnosis associated with the presentation includes This is likely vertigo and syncope. Will rule out metabolic derangements, pulmonary embolism, orthostatic hypotension, arrhythmias. Unlikely ACS, dissection. Will rule out . And viral illness. NIH stroke scale 0 unlikely intracranial hemorrhage, stroke, posterior stroke. Admission/Observation Consideration of admission/observation: Escalation of care including admission/observation considered likely Lab Data [facility] Lab Attestation statement: I reviewed the patient's lab results. 07/03/23 12:16 07/03/23 12:16 Labs: Lab Results 07/03/23 07/03/23 07/03/23 Range/Units 12:16 12:17 13:57 WBC 8.1 (4.8-10.8) X10*3/uL RBC 4.67 (4.20-5.50) X10*6/uL Hgb 14.1 (12.0-16.0) g/dl Hct 40.9 (37.0-47.0) % MCV 87.6 (80.0-98.0) fL MCH 30.2 (27.0-33.0) pg MCHC 34.5 (31.0-35.0) g/dl RDW 12.3 (11.0-16.0) % Plt Count 353 D (160-400) X10*3/uL MPV 9.8 (9.4-12.3) fL Immature Gran % (Auto) 0.2 (0.0-0.4) % Neut % (Auto) 60.6 (45-73) % Lymph % (Auto) 22.3 (20-40) % [place] % (Auto) 6.7 (2-11) % Eos % (Auto) 9.6 H (0-4) % Baso % (Auto) 0.6 (0-2) % Lymph # (Auto) 1.8 (1.2-4.9) X10*3/uL [place] # (Auto) 0.5 (0.1-1.2) X10*3/uL Eos # (Auto) 0.8 H (0.0-0.4) X10*3/uL Baso # (Auto) 0.1 (0.0-0.2) X10*3/uL Abs Immat Gran (auto) 0.02 (0.00-0.03) X10*3/uL Absolute Neuts (auto) 4.9 (2.0-8.3) x10*3/uL Absolute Nucleated RBC 0.000 (0.0-0.012) X10*3/uL Nucleated RBC % (auto) 0.0 (0.0-0.2) /100WBC D-Dimer High Sensitivty < 150 NG/ML Sodium 140 (135-145) mmol/L Potassium 3.7 (3.3-5.1) mmol/L Chloride 108 (96-108) mmol/L Carbon Dioxide 22 (22-29) mmol/L Anion Gap 14 (12-20) BUN 10 (9-16) mg/dL Creatinine 0.65 (0.5-1.4) mg/dL Estim Creat Clear Calc 115.2 Estimated GFR > 60 Random Glucose 104 (60-115) mg/dL Calcium 9.9 D (8.4-10.2) mg/dL Magnesium 2.1 (1.6-2.6) mg/dL Total Bilirubin 0.3 (0.0-1.0) mg/dL AST 18 (5-31) U/L ALT 18 (0-31) U/L Alkaline Phosphatase 64 (39-117) U/L Total Creatine Kinase 63 (26-140) U/L Troponin I High Sens < 2.7 (<3.5-17.0) ng/L B-Natriuretic Peptide < 10 (<100) pg/mL Total Protein 7.3 (6.5-8.0) g/dL Albumin 4.5 (3.5-5.0) g/dL Beta HCG, Quant < 2 mIU/mL Urine Color Yellow Urine Appearance Clear Urine pH 8.0 (5.0-9.0) Ur Specific Dawson <= 1.005 (1.005-1.025) Urine Protein Negative (Neg-Trace) mg/dL Urine Glucose (UA) Negative (Negative) mg/dL Urine Ketones Trace (Negative) mg/dL Urine Blood Negative (Negative) Urine Nitrite Negative (Negative) Ur Leukocyte Esterase Negative (Negative) Urine Opiates Screen Not Detected (Not Detect) Urine Fentanyl Screen Not Detected (Not Detect) Ur Barbiturates Screen Not Detected (Not Detect) Ur Phencyclidine Scrn Not Detected (Not Detect) Ur Amphetamines Screen Not Detected (Not Detect) U Benzodiazepines Scrn Not Detected (Not Detect) Urine Cocaine Screen Not Detected (Not Detect) U Marijuana (THC) Screen POSITIVE H (Not Detect) Ethyl Alcohol < 10 mg/dL Influenza Type A (PCR) NEGATIVE (Negative) Influenza Type B (PCR) NEGATIVE (Negative) RSV RNA Qual (PCR) NEGATIVE (Negative) SARS-CoV-2 RNA (RT-PCR) NEGATIVE (Negative) Independent Interpretation I performed an independent interpretation of an: EKG, Plain X-Ray and CT Scan Radiology Impression Discussion of test interpretation with radiology: I have reviewed the radiologist's reading. Critical Care Time Critical Care Time Critical Care Time: No Discharge Plan Discharge Clinical Impression: Syncope, Vertigo, Mastoid pain Patient Disposition: Still a Patient Prescriptions: No Action Trintellix 20 mg tablet 1 tab PO QAM clonazepam 0.5 mg tablet 1 tab PO BEDTIME PRN (Reason: Anxiety) loratadine 10 mg Tablet 10 mg PO QAM diphenhydramine HCl [Benadryl] 25 mg Capsule 25 mg PO BEDTIME PRN (Reason: Insomnia) famotidine [Pepcid] 20 mg tablet 20 mg PO DAILY Qty: 3 0RF epinephrine [EpiPen] 0.3 mg/0.3 mL auto-injector 0.3 mg IM Q4H PRN (Reason: anaphylaxis) Qty: 2 0RF albuterol sulfate 90 mcg/actuation aerosol powdr breath activated 1 inh inhalation Q4H PRN (Reason: Shortness Of Breath Or Wheezing) amoxicillin-pot clavulanate 875-125 mg tablet 1 tab PO BID Qty: 14 0RF albuterol sulfate 90 mcg/actuation HFA aerosol inhaler 1 inh inhalation QID PRN (Reason: shortness of breath or wheezing) Qty: 6.7 0RF
[2023-07-03 12:25] LABS: MANUAL DIFF FLAG NO
[2023-07-03] MEDS: ondansetron HCL 4 MG/2 ML VIAL IVPUSH (12:25)
[2023-07-03] MEDS: 0.9 % Sodium Chloride 1,000 ML 999 ML IV (12:26)
[2023-07-03 12:27] LABS: Basophils Absolute Auto 0.1 X10*3/uL (0.0-0.2); Basophils Percent Auto 0.6 % (0-2); Eosinophils Absolute Auto 0.8 X10*3/uL (0.0-0.4); Eosinophils Percent Auto 9.6 % (0-4); Hematocrit 40.9 % (37.0-47.0); Hemoglobin 14.1 g/dl (12.0-16.0); Imm Gran Abs Auto 0.02 X10*3/uL (0.00-0.03); Imm Gran Pct Auto 0.2 % (0.0-0.4); Lymphocytes Absolute Auto 1.8 X10*3/uL (1.2-4.9); Lymphocytes Percent Auto 22.3 % (20-40); Mean Corpuscular HGB Conc 34.5 g/dl (31.0-35.0); Mean Corpuscular Hemoglobin 30.2 pg (27.0-33.0); Mean Corpuscular Volume 87.6 fL (80.0-98.0); Mean Platelet Volume 9.8 fL (9.4-12.3); Monocytes Absolute Auto 0.5 X10*3/uL (0.1-1.2); Monocytes Percent Auto 6.7 % (2-11); Neutrophils Absolute Auto 4.9 x10*3/uL (2.0-8.3); Neutrophils Percent Auto 60.6 % (45-73); Platelet Count 353 X10*3/uL (160-400); Red Blood Count 4.67 X10*6/uL (4.20-5.50); Red Cell Distribution Width 12.3 % (11.0-16.0); White Blood Count 8.1 X10*3/uL (4.8-10.8)
[2023-07-03] MEDS: diazePAM 2 MG TABLET PO (12:27)
[2023-07-03] MEDS: Meclizine HCl 25 MG TABLET PO (12:27)
[2023-07-03 12:36] LABS: D Dimer High Sensitivity < 150 NG/ML
[2023-07-03 12:42] LABS: Alanine Aminotransferase 18 U/L (0-31); Albumin Level 4.5 g/dL (3.5-5.0); Alkaline Phosphatase 64 U/L (39-117); Anion Gap 14 (12-20); Aspartate Amino Transferase 18 U/L (5-31); Bilirubin Total 0.3 mg/dL (0.0-1.0); Blood Urea Nitrogen 10 mg/dL (9-16); Calcium 9.9 mg/dL (8.4-10.2); Carbon Dioxide 22 mmol/L (22-29); Chloride 108 mmol/L (96-108); Creatinine Clr Calc Pharmacy 115.2; Estimated Glomerular Filt Rate > 60; Glucose Random 104 mg/dL (60-115); Magnesium 2.1 mg/dL (1.6-2.6); Potassium 3.7 mmol/L (3.3-5.1); Sodium 140 mmol/L (135-145); Total Protein 7.3 g/dL (6.5-8.0)
[2023-07-03 12:47] LABS: B Type Natriuretic Peptide < 10 pg/mL (<100); Ethanol < 10 mg/dL
[2023-07-03 12:58] LABS: Troponin-I High Sensitivity < 2.7 ng/L (<3.5-17.0)
[2023-07-03 12:59] LABS: HCG Quantitative < 2 mIU/mL
[2023-07-03 13:06] LABS: Influenza A PCR NEGATIVE (Negative); Influenza B PCR NEGATIVE (Negative); Resp Syncy Virus RNA Qual PCR NEGATIVE (Negative); SARS COV2 PCR INHOUSE NEGATIVE (Negative)
[2023-07-03 14:17] LABS: Appearance Urine Clear; Color Urine Yellow; Glucose Urine UA Negative (Negative); Leukocyte Esterase Urine Negative (Negative); Nitrite Urine Negative (Negative); Specific Gravity - Urine <= 1.005 (1.005-1.025); Urine Blood Negative (Negative); Urine Ketones Trace mg/dL (Negative); Urine Protein Negative (Neg-Trace)
[2023-07-03 14:18] LABS: Amphetamine Screen Urine Not Detected (Not Detect); Barbiturates, Urine Not Detected (Not Detect); Benzodiazepines Screen Urine Not Detected (Not Detect); Cannabinoid Screen Urine POSITIVE (Not Detect); Cocaine Screen Urine Not Detected (Not Detect); Fentanyl, urine Not Detected (Not Detect); Opiate Screen Urine Not Detected (Not Detect); Phencyclidine Screen Urine Not Detected (Not Detect)
[2023-07-03 14:54] VITALS: BP 106/49; PULSE 63; RESP 16; TEMP 36.9; O2SAT 100
[2023-07-03] MEDS: Ketorolac Tromethamine 15 MG/ML VIAL 30 MG IVPUSH (16:15)
[2023-07-03] MEDS: diphenhydrAMINE HCL 50 MG/ML VIAL 25 MG IVPUSH (18:26)
[2023-07-03] MEDS: Prochlorperazine Edisylate 10 MG/2 ML VIAL IVPUSH (18:27)
--- NOTE | 2023-07-03 20:26 | MHC.EDTECH ---
Took patient on a lap to check to see how she was walking. She was able to walk steady and stated her dizziness has subsided.
[2023-07-03 20:29] VITALS: BP 107/63; PULSE 64; RESP 18; O2SAT 99
[2023-07-03] MEDS: Amoxicillin/Potassium Clav 875 MG TABLET PO (21:17)
--- NOTE | 2023-07-03 21:24 | PC.NURSE ---
pt medicated according to mar. iv removed at discharge. pt partner at bedside at discharge. pt calm and cooperative denies pain and dizziness at time of discharge. pt ambulatory at discharge. pt provided with copy of CT and discharge packet. pt verbalized understanding of discharge plan
== END 2023-07-03 21:27 | disposition home or self-care (01) ==
PROVIDERS: Physician Assistant; Emergency Provider Emergency Medicine Emergency Medical Services; PCP Internal Medicine
DX: R55 Syncope and collapse (principal); R51.9 Headache, unspecified; J34.89 Other specified disorders of nose and nasal sinuses; R11.2 Nausea with vomiting, unspecified; R06.02 Shortness of breath; Z79.899 Other long term (current) drug therapy; Z20.822 Contact with and (suspected) exposure to COVID-19; Z20.828 Contact with and (suspected) exposure to other viral communicable diseases
CPT/HCPCS: 0241U; 36415; 70450; 70481; 71045; 80053; 80307; 81003; 82550; 83735; 83880; 84484; 84702; 85025; 85379; 93005; 96361; 96374; 96375; 99285; J0737; J1200; J1885; J2405

== ENCOUNTER → 2023-07-03 11:53 | Outpatient (BNV) | payer OTHER, SELFPAY | PROVIDERS: Emergency Provider Emergency Medicine Emergency Medical Services; PCP Internal Medicine; Visit Provider Internal Medicine Cardiovascular Disease | DX: R42 Dizziness and giddiness (principal) | CPT/HCPCS: 93010 ==

== ENCOUNTER 2023-08-13 12:52 | Outpatient (AMB) | payer OTHER, SELFPAY ==
[2023-08-13 12:56] VITALS: BP 108/68; PULSE 65; O2SAT 99; BMI 21.3
--- NOTE | 2023-08-13 12:56 | A.OFFPC_ITS ---
Vital Signs 08/13/23 12:56 Height 5 ft 6 in Weight 132 lb BMI 21.3 BP 108/68 Blood Pressure Location Lt brachial Position Sitting Pulse 65 Pulse Source Pulse Oximeter Pulse Oximetry (%) 99 Oxygen Delivery Method Room Air Intake Visit Reasons: ENT Referral-Sinus Issues Allergies animal dander [ANIMAL HAIR] Allergy (Unknown, Verified 08/13/23 12:57) HIVES apple Allergy (Unknown, Verified 08/13/23 12:57) unknown cat dander Allergy (Unknown, Verified 08/13/23 12:57) unknown dog dander Allergy (Unknown, Verified 08/13/23 12:57) unknown house dust Allergy (Unknown, Verified 08/13/23 12:57) unknown SEASONAL ALLERGIES Allergy (Mild, Uncoded 08/13/23 12:57) CONGESTION CILANTRO Allergy (Unknown, Uncoded 08/13/23 12:57) ANGIOEDEMA Medication List - Last Reconciled 08/13/23 by Kassidy Mcknight MD albuterol sulfate 90 mcg/actuation 1 inh inhalation Q4H PRN albuterol sulfate 90 mcg/actuation 1 inh inhalation QID PRN clonazepam 1 tab PO BEDTIME PRN diphenhydramine HCl (Benadryl) 25 mg PO BEDTIME PRN epinephrine (EpiPen) 0.3 mg (0.3 mL) IM Q4H PRN loratadine 10 mg PO QAM vortioxetine (Trintellix) 1 tab PO QAM Tobacco use date assessed: 08/13/23 Dental Screening Dental Screen Date: 08/13/23 Did you have a dental visit in the last 12 months?: No Did you have a dental problem in the last 6 months where you did not have access to dental care?: No Was dental information given to patient?: Patient has dentist HPI ENT Referral-Sinus Issues HPI Details Patient is a 32-year-old female who was seen last in primary care office August of 2020 Patient have a chronic nasal congestion, she said that she had x-ray done for her dental workup and she was told she has bilateral maxillary and frontal sinusitis She has difficulty breathing from does She is using Flonase nasal spray, Claritin, and Benadryl as needed On examination patient does have deviated septum to left I have placed a referral for to be evaluated by ENT specialist [facility] Medical History Concussion Seasonal allergies Depression Family History Father No problems noted. Mother No problems noted. Maternal Grandmother No problems noted. Maternal Grandfather HTN (hypertension) Diabetes mellitus High cholesterol Social History Housing: House Alcohol intake: current Alcohol intake frequency: a few times a week Alcohol type: hard liquor Patient Tobacco Use Status: Former Tobacco user e-Cigarette/Vaping Use: Never Used Cognitive needs: No Hearing needs: No Vision needs: No Questionnaire PHQ-9 Over the last 2 weeks, how often have you been bothered by any of the following problems? 1. Little interest or pleasure in doing things: not at all 2. Feeling down, depressed, or hopeless: not at all 3. Trouble falling or staying asleep, or sleeping too much: not at all 4. Feeling tired or having little energy: not at all 5. Poor appetite or overeating: not at all 6. Feeling bad about yourself - or that you are a failure or have let yourself or your family down: not at all 7. Trouble concentrating on things, such as reading the newspaper or watching television: not at all 8. Moving or speaking so slowly that other people could have noticed. Or the opposite - being so fidgety or restless that you have been moving around a lot more than usual: not at all 9. Thoughts that you would be better off or of hurting yourself in some way: not at all Total score: 0 Depression Screening Interpretation: Negative Depression Screening Done: Yes 08556 - PHQ-9 Billing: Yes Source: Developed by Drs. Shawn Farnsworth, Daisy Araya, Herbert Yanez and colleagues, with an educational alfredo from [employer]. Thrive Questionnaire Date Thrive assessed: 08/13/23 I am a: Patient What is your living situation today?: I have a steady place to live Within the past 12 months, did the food you bought not last and you didn't have the money to get more?: Never true Within the past 12 months, did you worry whether your food would run out before you got money to buy more?: Never true Do you have trouble paying for medicines?: No Do you have trouble getting transportation to medical appointments?: No Do you have trouble paying your heating and electricity bill?: No Do you have trouble taking care of your child, family member or friend?: No Do you have trouble with day-to-day activities such as bathing, preparing meals, shopping, managing finances, etc.?: No Are you currently unemployed and looking for a job?: No Are you interested in more education?: No Please select the resources that you would like help with: None Currently or been in a relationship where the following occur: no concerns reported THRIVE Score: 0 AUDIT C Alcohol Use Questionnaire (AUDIT-C) 1. How often do you have a drink containing alcohol?: Monthly or less 2. How many drinks containing alcohol do you have on a typical day when you are drinking?: 1 or 2 3. How often do you have six or more drinks on one occasion?: Never Total Score: 1 EDINSON-7 AMB Questionnaire EDINSON-7 Date EDINSON - 7 assessed: 08/13/23 Feeling nervous, anxious, or on edge: 1 = Several days Not being able to stop or control worryin = Not at all Worrying too much about different things: 0 = Not at all Trouble relaxin = Not at all Being so restless that it is hard to sit still: 0 = Not at all Becoming easily annoyed or irritable: 0 = Not at all Feeling afraid as if something awful might happen: 0 = Not at all Total EDINSON-7 score (0-4 normal; 5-9 mild; 10-14 moderate; 15-21 severe): 1 Source: Developed by Drs. Shawn Farnsworth, Daisy Araya, Herbert Yanez and colleagues, with an educational alfredo from [employer]. EDINSON-7 Assessment Billing EDINSON-7 Assessment Tool: EDINSON-7 Assessment 93616 Review of Systems Const Denies chills and Denies fever(s) ENT Denies epistaxis and Denies nasal discharge Card Denies chest pain Resp Denies chest congestion, Denies cough and Denies hemoptysis GI Denies diarrhea and Denies nausea Skin/Breast Denies rash Neuro Reports no additional complaints Psych Reports no additional complaints Endo Reports no additional complaints Physical exam (Primary Care) Vital Signs: Last Vital Signs Pulse 65 08/13/23 12:56 BP 108/68 08/13/23 12:56 Pulse Ox 99 08/13/23 12:56 Oxygen Delivery Method Room Air 08/13/23 12:56 BMI result Body Mass Index 21.3 Tobacco/Smoking Status: Tobacco use Status Tobacco use date assessed 08/13/23 08/13/23 13:01 Patient Tobacco Use Status Former Tobacco user 08/13/23 13:01 e-Cigarette/Vaping Use Never Used 08/13/23 13:01 PHQ-9: PHQ-9 Score PHQ-9: Total score 0 08/13/23 13:35 Depression Screening Interpretation: Negative Thrive Assessment: Date of Thrive Assessment Date Thrive assessed 08/13/23 08/13/23 13:35 Currently or been in a relationship where the following occur: no concerns reported Const General: cooperative, comfortable and no acute distress Orientation/consciousness: patient oriented x3 HENMT Other: Slight discomfort on left frontal sinus with pressure, nasal septum deviation to left, clear discharge in both nares Head: Yes normocephalic Eyes General: appearance normal, both eyes and all related structures Neck Neck: Yes supple Resp Effort & Inspection: normal respiratory effort, no cough and no stridor Cardio Rhythm: regular rhythm Heart sounds: S1 normal heart sound present and S2 normal heart sound present Skin General skin exam: turgor normal Neuro General: patient oriented x3, tone normal and moves all extremities Extrem Right lower extremity: no edema Left lower extremity: no edema Assessment and Plan Assessment & Plan (1) Chronic sinusitis: Code(s): J32.9 - Chronic sinusitis, unspecified Qualifiers: Sinusitis location: frontal Qualified Code(s): J32.1 - Chronic frontal sinusitis (2) Nasal congestion: Code(s): R09.81 - Nasal congestion (3) Deviated nasal septum: Code(s): J34.2 - Deviated nasal septum Plan Patient is a 32-year-old female who was seen last in primary care office August of 2020 Patient have a chronic nasal congestion, she said that she had x-ray done for her dental workup and she was told she has bilateral maxillary and frontal sinusitis She has difficulty breathing from does She is using Flonase nasal spray, Claritin, and Benadryl as needed On examination patient does have deviated septum to left I have placed a referral for to be evaluated by ENT specialist Orders: Referrals Ear/Nose/Throat Referral J32.9 - Chronic sinusitis, unspecified, J34.2 - Deviated nasal septum, R09.81 - Nasal congestion Coding Level of Care Code Est Pt Level 3 (39495) Diagnoses Chronic frontal sinusitis J32.1 Sinusitis location: frontal Nasal congestion R09.81 Deviated nasal septum J34.2 Additional Codes EDINSON-7 Assessment Billing - EDINSON-7 Assessment Tool: EDINSON-7 Assessment 98335 ([id number])
== END 2023-08-13 13:12 | disposition home or self-care (01) ==
PROVIDERS: PCP Internal Medicine; Visit Provider Internal Medicine
DX: J32.1 Chronic frontal sinusitis (principal); R09.81 Nasal congestion; J34.2 Deviated nasal septum
CPT/HCPCS: 99213

== ENCOUNTER 2024-03-15 21:27 | Emergency (ER) | payer OTHER, SELFPAY ==
[2024-03-15 21:43] VITALS: BP 114/67; BP 130/57; PULSE 105; PULSE 77; RESP 16; TEMP 36.9; O2SAT 98; O2SAT 99; BMI 25.0
--- NOTE | 2024-03-15 21:51 | ED_ITS ---
HPI - Psych General Chief Complaint: Psychiatric Symptoms Stated Complaint: AMS,ETOH,STARTED NEW MEDS Time Seen by Provider: 03/15/24 21:46 Source: patient Mode of arrival: EMS Limitations: no limitations History of Present Illness ED Provider: austin BEGUM Narrative: Patient history of bipolar disorder was taking vortioxetine for last 5 years changed to Prozac 1 week ago had few drinks earlier today become manic started running naked with knife making SI statements Section 12 in the field superficial abrasion to the left forearm after arrival in the ER patient has regrets what happened denies any SI at this time Related Data Home Medications ?Medication ?Instructions ?Recorded ?Confirmed albuterol sulfate 90 mcg/actuation 1 inh inhalation Q4H PRN Shortness 08/17/20 08/13/23 breath activated powder inhaler Of Breath Or Wheezing clonazepam 0.5 mg tablet 1 tab PO BEDTIME PRN Anxiety 09/11/22 08/13/23 diphenhydramine HCl 25 mg capsule 25 mg PO BEDTIME PRN Insomnia 09/11/22 08/13/23 (Benadryl) loratadine 10 mg tablet 10 mg PO QAM 09/11/22 08/13/23 vortioxetine 20 mg tablet 1 tab PO QAM 09/11/22 08/13/23 (Trintellix) Previous Rx's ?Medication ?Instructions ?Recorded epinephrine 0.3 mg/0.3 mL 0.3 mg (0.3 mL) IM Q4H PRN 02/24/23 injection, auto-injector (EpiPen) anaphylaxis #2 ea albuterol sulfate 90 mcg/actuation 1 inh inhalation QID PRN shortness 06/26/23 aerosol inhaler of breath or wheezing #6.7 grams Allergies Allergy/AdvReac Type Severity Reaction Status Date / Time animal dander [ANIMAL HAIR] Allergy Unknown HIVES Verified 03/15/24 21:48 apple Allergy Unknown unknown Verified 03/15/24 21:48 cat dander Allergy Unknown unknown Verified 03/15/24 21:48 dog dander Allergy Unknown unknown Verified 03/15/24 21:48 house dust Allergy Unknown unknown Verified 03/15/24 21:48 SEASONAL ALLERGIES Allergy Mild CONGESTION Uncoded 03/15/24 21:48 CILANTRO Allergy Unknown ANGIOEDEMA Uncoded 03/15/24 21:48 Review of Systems 2 Review of Systems: Yes all other systems are reviewed and are negative [facility] Past Medical History Medical History Concussion Seasonal allergies Depression Family History Family History Father No problems noted. Mother No problems noted. Maternal Grandmother No problems noted. Maternal Grandfather HTN (hypertension) Diabetes mellitus High cholesterol Social History Social History Housing: House Alcohol intake: current Alcohol intake frequency: a few times a week Alcohol type: hard liquor Patient Tobacco Use Status: Former Tobacco user Smoked in Last 30 Days: No e-Cigarette/Vaping Use: Never Used Use of substances other than those prescribed or required for medical reasons: No Substance Use Type: Marijuana Advance Directives: No Advance Directives Information Provided: No Do you have a plan to hurt others: No Plan Patient : No Cognitive needs: No Hearing needs: No Vision needs: No Physical Exam 2 Vital Signs: Vital Signs: Last Vital Signs Temp 98.4 F 03/16/24 04:31 Pulse 76 03/16/24 04:31 Resp 16 03/16/24 04:31 BP 104/62 03/16/24 04:31 Pulse Ox 98 03/16/24 04:31 O2 Del Method Room Air 03/16/24 04:31 BMI result Body Mass Index 25.0 Appearance: Alert. Oriented X3. No acute distress.tearful etoh+ Eyes: PERRLA, No Nystagmus ENT: Pharynx normal. Oral Mucosa moist Neck: Normal inspection. Neck supple. CVS: Normal heart rate and rhythm. Pulses normal. Respiratory: No respiratory distress. Equal air entry bilateral, no wheezing/rales/rhonchi Abdomen: Soft and nontender. Bowel sounds are present, no mass palpable, no CVA tenderness Skin: Skin warm and dry. Normal skin color. Normal skin turgor. Extremities: No lower extremity edema. No calf tenderness superficial linear abrasion left forearm Psych: Denies any SI or HI at this time mood stable tearful Neuro: Oriented X 3. No motor deficit. No sensory deficit.No cerebellar signs , cranial nerves II-XII intact Medications Administered Discontinued Medications Generic Name Dose Route Start Last Admin Trade Name Freq PRN Reason Stop Dose Admin Sodium Chloride 1,000 mls @ 999 mls/hr 03/16/24 05:03 03/16/24 05:14 Ns IV 03/16/24 06:03 999 mls/hr .Q1H1M ONE Administration Lorazepam 0.5 mg 03/16/24 00:37 03/16/24 00:52 Lorazepam 2 Mg/Ml Vial IVPUSH 03/16/24 00:38 0.5 mg ONCE ONE Administration Lorazepam 1 mg 03/16/24 05:03 03/16/24 05:17 Lorazepam 2 Mg/Ml Vial IVPUSH 03/16/24 05:04 1 mg ONCE ONE Administration Ondansetron HCl 4 mg 03/16/24 05:03 03/16/24 05:14 Ondansetron Hcl 4 Mg/2 Ml Vial IVPUSH 03/16/24 05:04 4 mg ONCE ONE Administration Medical Decision Making Medical Decision Making MDM Narrative: Patient with bipolar disorder with significant depression came here after intoxication and making suicidal attempts at home using the knife section 12 by the PD will be seen by care team for further evaluation Lab Data MDM Lab Attestation statement: I reviewed the patient's lab results. 03/15/24 22:51 03/15/24 22:51 Labs: Lab Results 03/15/24 03/15/24 Range/Units 21:57 22:51 WBC 15.3 H (4.8-10.8) X10*3/uL RBC 4.22 (4.20-5.50) X10*6/uL Hgb 13.5 (12.0-16.0) g/dl Hct 37.9 (37.0-47.0) % MCV 89.8 (80.0-98.0) fL MCH 32.0 (27.0-33.0) pg MCHC 35.6 H (31.0-35.0) g/dl RDW 12.8 (11.0-16.0) % Plt Count 267 (160-400) X10*3/uL MPV 10.0 (9.4-12.3) fL Immature Gran % (Auto) 0.3 (0.0-0.4) % Neut % (Auto) 86.6 H (45-73) % Lymph % (Auto) 8.3 L (20-40) % Boyle % (Auto) 2.3 (2-11) % Eos % (Auto) 2.2 (0-4) % Baso % (Auto) 0.3 (0-2) % Lymph # (Auto) 1.3 (1.2-4.9) X10*3/uL [place]le # (Auto) 0.4 (0.1-1.2) X10*3/uL Eos # (Auto) 0.3 (0.0-0.4) X10*3/uL Baso # (Auto) 0.1 (0.0-0.2) X10*3/uL Abs Immat Gran (auto) 0.05 H (0.00-0.03) X10*3/uL Absolute Neuts (auto) 13.3 H (2.0-8.3) x10*3/uL Absolute Nucleated RBC 0.000 (0.0-0.012) X10*3/uL Nucleated RBC % (auto) 0.0 (0.0-0.2) /100WBC Sodium 148 H (135-145) mmol/L Potassium 3.9 (3.3-5.1) mmol/L Chloride 115 H (96-108) mmol/L Carbon Dioxide 22 (22-29) mmol/L Anion Gap 15 (12-20) BUN 10 (9-16) mg/dL Creatinine 0.59 (0.5-1.4) mg/dL Estim Creat Clear Calc 120.9 Estimated GFR > 60 Random Glucose 97 (60-115) mg/dL Calcium 8.8 D (8.4-10.2) mg/dL Total Bilirubin 0.2 (0.0-1.0) mg/dL AST 17 (5-31) U/L ALT 14 (0-31) U/L Alkaline Phosphatase 47 (39-117) U/L Total Protein 7.3 (6.5-8.0) g/dL Albumin 4.5 (3.5-5.0) g/dL Urine Color Yellow Urine Appearance Clear Urine pH 6.0 (5.0-9.0) Ur Specific [place] <= 1.005 (1.005-1.025) Urine Protein Negative (Neg-Trace) mg/dL Urine Glucose (UA) Negative (Negative) mg/dL Urine Ketones Negative (Negative) mg/dL Urine Blood Trace H (Negative) Urine Nitrite Negative (Negative) Ur Leukocyte Esterase Trace H (Negative) Urine RBC 0-2 (0-2) /HPF Urine WBC 0-5 (0-5) /HPF Ur Squamous Epith Cells 0-2 (0-2) /HPF Urine Bacteria None Seen (None Seen) Hyaline Casts 0-2 (0-2) /LPF Urine Test NEGATIVE (NEGATIVE) Urine Opiates Screen Not Detected (Not Detect) Ur Buprenorphine Scrn Not Detected (Not Detect) ng/mL Ur Oxycodone Screen Not Detected (Not Detect) ng/mL Urine Methadone Screen Not Detected (Not Detect) ng/mL Urine Fentanyl Screen Not Detected (Not Detect) Ur Barbiturates Screen Not Detected (Not Detect) Ur Phencyclidine Scrn Not Detected (Not Detect) Ur Amphetamines Screen Not Detected (Not Detect) U Benzodiazepines Scrn Not Detected (Not Detect) Urine Cocaine Screen Not Detected (Not Detect) U Marijuana (THC) Screen POSITIVE H (Not Detect) Ethyl Alcohol 208 mg/dL Discharge Plan Discharge Clinical Impression: MDD (major depressive disorder), recurrent episode, moderate, Suicidal ideation Patient Disposition: Still a Patient Prescriptions: No Action Trintellix 20 mg tablet 1 tab PO QAM clonazepam 0.5 mg tablet 1 tab PO BEDTIME PRN (Reason: Anxiety) loratadine 10 mg Tablet 10 mg PO QAM diphenhydramine HCl [Benadryl] 25 mg Capsule 25 mg PO BEDTIME PRN (Reason: Insomnia) epinephrine [EpiPen] 0.3 mg/0.3 mL auto-injector 0.3 mg IM Q4H PRN (Reason: anaphylaxis) Qty: 2 0RF albuterol sulfate 90 mcg/actuation aerosol powdr breath activated 1 inh inhalation Q4H PRN (Reason: Shortness Of Breath Or Wheezing) albuterol sulfate 90 mcg/actuation HFA aerosol inhaler 1 inh inhalation QID PRN (Reason: shortness of breath or wheezing) Qty: 6.7 0RF Interventions: [place]-Suicide Risk Severity Scale Last Done: 03/15/24 22:01 Print Language: Greenlandic
[2024-03-15 22:06] LABS: Appearance Urine Clear; Color Urine Yellow; Glucose Urine UA Negative (Negative); Leukocyte Esterase Urine Trace (Negative); Nitrite Urine Negative (Negative); Specific Gravity - Urine <= 1.005 (1.005-1.025); UMIC TRIGGER UACC YES; Urine Blood Trace (Negative); Urine Ketones Negative (Negative); Urine Protein Negative (Neg-Trace)
[2024-03-15 22:07] LABS: UPreg QC Valid YES; Urine Pregnancy NEGATIVE (NEGATIVE)
[2024-03-15 22:09] LABS: Bacteria Urine None Seen (None Seen); Hyaline Casts Urine 0-2 /LPF (0-2); RBC Urine 0-2 /HPF (0-2); Squamous Epithelial Cell Urine 0-2 /HPF (0-2); WBC Urine 0-5 /HPF (0-5)
[2024-03-15 22:14] LABS: Amphetamine Screen Urine Not Detected (Not Detect); Barbiturates, Urine Not Detected (Not Detect); Benzodiazepines Screen Urine Not Detected (Not Detect); Buprenorphine Scr Not Detected (Not Detect); Cannabinoid Screen Urine POSITIVE (Not Detect); Cocaine Screen Urine Not Detected (Not Detect); Fentanyl, urine Not Detected (Not Detect); Methadone Screen, Urine Not Detected (Not Detect); Opiate Screen Urine Not Detected (Not Detect); Oxycodone Screen Urine Not Detected (Not Detect); Phencyclidine Screen Urine Not Detected (Not Detect)
[2024-03-15 22:56] LABS: MANUAL DIFF FLAG NO
[2024-03-15 22:57] LABS: Basophils Absolute Auto 0.1 X10*3/uL (0.0-0.2); Basophils Percent Auto 0.3 % (0-2); Eosinophils Absolute Auto 0.3 X10*3/uL (0.0-0.4); Eosinophils Percent Auto 2.2 % (0-4); Hematocrit 37.9 % (37.0-47.0); Hemoglobin 13.5 g/dl (12.0-16.0); Imm Gran Abs Auto 0.05 X10*3/uL (0.00-0.03); Imm Gran Pct Auto 0.3 % (0.0-0.4); Lymphocytes Absolute Auto 1.3 X10*3/uL (1.2-4.9); Lymphocytes Percent Auto 8.3 % (20-40); Mean Corpuscular HGB Conc 35.6 g/dl (31.0-35.0); Mean Corpuscular Volume 89.8 fL (80.0-98.0); Monocytes Absolute Auto 0.4 X10*3/uL (0.1-1.2); Monocytes Percent Auto 2.3 % (2-11); Neutrophils Absolute Auto 13.3 x10*3/uL (2.0-8.3); Neutrophils Percent Auto 86.6 % (45-73); Platelet Count 267 X10*3/uL (160-400); Red Blood Count 4.22 X10*6/uL (4.20-5.50); Red Cell Distribution Width 12.8 % (11.0-16.0); White Blood Count 15.3 X10*3/uL (4.8-10.8)
[2024-03-15 23:10] LABS: Alanine Aminotransferase 14 U/L (0-31); Albumin Level 4.5 g/dL (3.5-5.0); Alkaline Phosphatase 47 U/L (39-117); Anion Gap 15 (12-20); Aspartate Amino Transferase 17 U/L (5-31); Bilirubin Total 0.2 mg/dL (0.0-1.0); Blood Urea Nitrogen 10 mg/dL (9-16); Calcium 8.8 mg/dL (8.4-10.2); Carbon Dioxide 22 mmol/L (22-29); Chloride 115 mmol/L (96-108); Creatinine Clr Calc Pharmacy 120.9; Estimated Glomerular Filt Rate > 60; Ethanol 208 mg/dL; Glucose Random 97 mg/dL (60-115); Potassium 3.9 mmol/L (3.3-5.1); Sodium 148 mmol/L (135-145); Total Protein 7.3 g/dL (6.5-8.0)
[2024-03-15 23:42] VITALS: BP 127/71; PULSE 77; RESP 16; TEMP 36.7; O2SAT 97
[2024-03-16] MEDS: LORazepam 2 MG/ML VIAL 0.5 MG IVPUSH (00:52)
[2024-03-16 04:31] VITALS: BP 104/62; PULSE 76; RESP 16; TEMP 36.9; O2SAT 98
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
[2024-03-16] MEDS: ondansetron HCL 4 MG/2 ML VIAL IVPUSH (05:14)
[2024-03-16] MEDS: 0.9 % Sodium Chloride 1,000 ML 999 ML IV (05:14)
[2024-03-16] MEDS: LORazepam 2 MG/ML VIAL 1 MG IVPUSH (05:17)
--- NOTE | 2024-03-16 08:40 | PC.NURSE ---
Pt. asking to speak with this RN to have her AM Fluoxetine and Claritin ordered. Notifying
--- NOTE | 2024-03-16 08:42 | PC.NURSE ---
Per pt.- takes 20mg of Fluoxetine daily and 10mg Claritin daily
[2024-03-16 10:31] VITALS: BP 98/59; PULSE 70; RESP 20; TEMP 37.2; O2SAT 98
[2024-03-16 10:47] VITALS: BP 98/59; PULSE 70; RESP 20; TEMP 37.2; O2SAT 98
--- NOTE | 2024-03-16 13:00 | MHC.CARE ---
Pt has been referred to [facility] and PHP at [facility].
--- NOTE | 2024-03-16 13:52 | MHC.CARE ---
Pt placed on alert with [facility] and referred for a 3 day follow up
== END 2024-03-16 10:48 | disposition home or self-care (01) ==
PROVIDERS: Emergency Provider Internal Medicine; PCP Internal Medicine
DX: F33.1 Major depressive disorder, recurrent, moderate (principal); R45.851 Suicidal ideations; R41.82 Altered mental status, unspecified; Z79.899 Other long term (current) drug therapy; Z51.81 Encounter for therapeutic drug level monitoring
CPT/HCPCS: 36415; 80053; 80307; 81001; 81025; 85025; 96361; 96374; 96375; 96376; 99285; J2060; J2405; S9485

== ENCOUNTER 2024-03-21 10:12 | Outpatient (REF) | payer OTHER, SELFPAY ==
[2024-03-21 10:36] LABS: MANUAL DIFF FLAG NO
[2024-03-21 11:10] LABS: Basophils Absolute Auto 0.1 X10*3/uL (0.0-0.2); Basophils Percent Auto 0.8 % (0-2); Eosinophils Absolute Auto 0.5 X10*3/uL (0.0-0.4); Eosinophils Percent Auto 7.4 % (0-4); Hematocrit 41.4 % (37.0-47.0); Hemoglobin 14.1 g/dl (12.0-16.0); Imm Gran Abs Auto 0.01 X10*3/uL (0.00-0.03); Imm Gran Pct Auto 0.2 % (0.0-0.4); Lymphocytes Absolute Auto 1.5 X10*3/uL (1.2-4.9); Lymphocytes Percent Auto 24.4 % (20-40); Mean Corpuscular HGB Conc 34.1 g/dl (31.0-35.0); Mean Corpuscular Hemoglobin 31.5 pg (27.0-33.0); Mean Corpuscular Volume 92.4 fL (80.0-98.0); Mean Platelet Volume 10.2 fL (9.4-12.3); Monocytes Absolute Auto 0.5 X10*3/uL (0.1-1.2); Monocytes Percent Auto 8.1 % (2-11); Neutrophils Absolute Auto 3.7 x10*3/uL (2.0-8.3); Neutrophils Percent Auto 59.1 % (45-73); Platelet Count 292 X10*3/uL (160-400); Red Blood Count 4.48 X10*6/uL (4.20-5.50); Red Cell Distribution Width 12.7 % (11.0-16.0); White Blood Count 6.2 X10*3/uL (4.8-10.8)
[2024-03-21 12:02] LABS: Alanine Aminotransferase 11 U/L (0-31); Albumin Level 4.6 g/dL (3.5-5.0); Alkaline Phosphatase 49 U/L (39-117); Anion Gap 13 (12-20); Aspartate Amino Transferase 11 U/L (5-31); Bilirubin Total 0.3 mg/dL (0.0-1.0); Blood Urea Nitrogen 9 mg/dL (9-16); Calcium 9.8 mg/dL (8.4-10.2); Carbon Dioxide 27 mmol/L (22-29); Chloride 105 mmol/L (96-108); Estimated Glomerular Filt Rate > 60; Glucose Random 98 mg/dL (60-115); Sodium 141 mmol/L (135-145); Total Protein 7.5 g/dL (6.5-8.0)
[2024-03-21 12:07] LABS: Thyroid Stimulating Hormone 1.32 uIU/mL (0.32-4.0)
== END 2024-03-21 10:13 | disposition home or self-care (01) ==
LOC: HO.LAB 10:12
PROVIDERS: PCP Internal Medicine; Visit Provider Clinical Nurse Specialist Psychiatric/Mental Health, Adult
DX: F31.11 Bipolar disorder, current episode manic without psychotic features, mild (principal); F41.9 Anxiety disorder, unspecified
CPT/HCPCS: 36415; 80053; 84443; 85025

== ENCOUNTER 2024-04-03 14:15 | Outpatient (RCR) | payer OTHER, SELFPAY ==
[2024-03-23 12:03] VITALS: BMI 21.9
[2024-03-23 12:05] VITALS: BP 122/77; PULSE 61; TEMP 36.6
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
--- NOTE | 2024-03-26 15:35 | HO.PHP ---
Client's case has been opened and reviewed in team.
--- NOTE | 2024-03-31 22:24 | P.PNPSP_ITS ---
Subjective Subjective Date of Service: 03/31/24 Reason For Visit: MDD Interim History: Pretty good Has been taking the Abilify 2 mg and is feeling more stable, calm, is less reactive at home and not as easily tearful or jumping down someone's throat or labile. Anxiety comes and goes. Attention focus still issues more long standing, but has more trouble with impulse control, no aggregious behaviors. Just more likely to cut people off when talking or overreact to stressors anisa in the moment. Denies any SI, HI, AH, VH. No alcohol or substance use. Did not start on the lithium and is glad we decided against it as she feels the Abilify was the right choice. Medication Compliance: Yes Side effects from medications: No Attending Groups: Yes Review of Systems Acute medical concerns: No Medical Review of Systems: unchanged Mental Status Exam Mental Status Exam Patient Appearance: Well Grooomed Patient Orientation: Person, Place, Time and Situation Level of Consciousness: Awake and Alert Patient Behavior: Appropriate Mood Description: Labile (improving) Affect Description: Calm and Appropriate Patient Cognition Impaired: No Ability to Follow Directions: Excellent Speech Pattern: Clear Memory Description: Intact Hallucinations: None Delusions: Not Present Thought Process: Intact and Distracted Thought Content: positive for Circumstantial Judgement: Good Diagnostics Vital Signs (24Hr): BMI result Body Mass Index 21.9 Assessment & Plan Assessment & Plan (1) Other specified persistent mood disorders: Status: Acute Code(s): F34.89 - Other specified persistent mood disorders (2) Alcohol use with alcohol-induced disorder: Status: Acute Code(s): F10.99 - Alcohol use, unspecified with unspecified alcohol-induced disorder (3) Other impulse disorders: Status: Acute Code(s): F63.89 - Other impulse disorders (4) Attention and concentration deficit: Status: Acute Code(s): R41.840 - Attention and concentration deficit Plan increase Abilify to 3.5 mg qd continue fluoxetine 20 mg qam continue clonazepam 0.5 mg TID prn anxiety continue melatonin 1 mg qhs prn sleep continue Unisom Sleepmelts qhs prn sleep continue Benadryl 25 mg qhs prn sleep continue loratidine 10 mg qam albuterol inhaler epi-pen prn anaphylaxis Routine lab work ordered EKG, routine for baseline QTc for medication considerations UDS as indicated Continue to monitor Certification I certify that partial hospital treatment is medically necessary due to the symptoms and problems resulting from the patient's mental illness and the failure to treat the patient at the partial hospital level of care would likely result in the patient requiring inpatient psychiatric care which could not be prevented at a less intensive level of care. Total time managing care of this patient today ____ minutes. Discharge Plan Discharge Attending provider: Nelly Levin Medications: New aripiprazole 5 mg tablet 5 mg PO BEDTIME Qty: 30 0RF Continued clonazepam 0.5 mg tablet 0.5 mg PO TID PRN (Reason: Anxiety) Patient Comments: Patient stated she takes as needed. Usually takes once a day. loratadine 10 mg Tablet 10 mg PO QAM diphenhydramine HCl [Benadryl] 25 mg Capsule 25 mg PO BEDTIME PRN (Reason: Insomnia) Rx Instructions: Patient alternates between taking Benadryl and Unisom. epinephrine [EpiPen] 0.3 mg/0.3 mL auto-injector 0.3 mg IM Q4H PRN (Reason: anaphylaxis) Qty: 2 0RF fluoxetine [Prozac] 20 mg Capsule 20 mg PO DAILY lithium carbonate 150 mg Capsule 150 mg PO DAILY Patient Comments: New medication, patient has not started. Waiting for provider approval s/p lab work. melatonin 1 mg Tablet 1 mg PO BEDTIME PRN (Reason: Insomnia) aripiprazole 2 mg tablet 2 mg PO DAILY Unisom SleepMelts 25 mg Tablet,Disintegrating 25 mg PO BEDTIME PRN (Reason: Insomnia) Rx Instructions: Takes when she is not taking Benadryl. Alternates between Benadryl and Unisom. albuterol sulfate 90 mcg/actuation HFA aerosol inhaler 1 inh inhalation QID PRN (Reason: shortness of breath or wheezing) Qty: 6.7 0RF Print Language: Kiswahili
--- NOTE | 2024-04-01 14:07 | HO.PHP ---
[facility] staff member received a Voicemail from Carolina's DCF worker, Nelly. [facility] staff member returned Nelly's call and encouraged her to contact the PHP staff member back. [facility] staff member is awaiting a phone call.
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
--- NOTE | 2024-04-03 21:41 | P.PNPSP_ITS ---
Subjective Subjective Date of Service: 04/03/24 Reason For Visit: MDD Interim History: Patient seen for follow-up and anticipates discharge at the end of the day. She had gotten emotional about running over a chipmunk, but was able to recover emotionally more quickly. Denies any cravings for alcohol. Continues to titrate Abilify toward 5 mg, currently at 3.5 mg qd. Suggest trying 5 mg/d for the week leading up to menses. She reports feeling better, and in fact her family has also noticed she is more stable and is doing better. Patient seen for follow-up, anticipating discharge at the end of program today.? Reports no acute issues or concerns. Medication compliant, medications well- tolerated. Denies any adverse effects.? Mood is stable.? Denies any hopelessness or SI. Denies thoughts of harming self or others at this time. Denies any aggressive ideation or HI. Denies any par anoia or AH or VH. Sleep, appetite, energy stable. Mental Status Exam Mental Status Exam Narrative: Alert, oriented, in no acute distress. Calm, cooperative. Mood stable, affect appropriate. Speech normal. Thought process linear, coherent, more goal- directed. Thought content related to stressors, future-oriented, denies any helplessness, hopelessness or SI.? No aggressive ideation or HI. No paranoia or delusional content elicited. No evidence of psychosis. Insight and judgment fair-good. Patient Appearance: Well Grooomed Patient Orientation: Person, Place, Time and Situation Level of Consciousness: Awake and Alert Patient Behavior: Appropriate Mood Description: Labile (improving) Affect Description: Calm and Appropriate Patient Cognition Impaired: No Ability to Follow Directions: Excellent Speech Pattern: Clear Memory Description: Intact Diagnostics Vital Signs (24Hr): BMI result Body Mass Index 21.9 Assessment & Plan Assessment & Plan (1) Other specified persistent mood disorders: Status: Acute Code(s): F34.89 - Other specified persistent mood disorders (2) Alcohol use with alcohol-induced disorder: Status: Acute Code(s): F10.99 - Alcohol use, unspecified with unspecified alcohol-induced disorder (3) Other impulse disorders: Status: Acute Code(s): F63.89 - Other impulse disorders (4) Attention and concentration deficit: Status: Acute Code(s): R41.840 - Attention and concentration deficit (5) Mood disorder: Status: Acute Code(s): F39 - Unspecified mood [affective] disorder Plan Discharge from [facility] continue Abilify at 3.5 mg qd (pt may bump up to 5 mg/d in the week leading up to her menses to target PMS/PMDD) continue fluoxetine 20 mg qam continue clonazepam 0.5 mg TID prn anxiety continue melatonin 1 mg qhs prn sleep continue Unisom Sleepmelts qhs prn sleep continue Benadryl 25 mg qhs prn sleep continue other regular medications Routine lab work reviewed will defer further medication management to outpatient provider - next appointment in ~ 4 weeks in the interim if patient has any questions or needs refills she is welcome to call the program Patient educated on: diagnosis, medication risk/benefits and substance abuse Informed Consent: understands Reason for contiued partial hosp. stay Substantial Risk for: stable for discharge Certification I certify that partial hospital treatment is medically necessary due to the symptoms and problems resulting from the patient's mental illness and the failure to treat the patient at the partial hospital level of care would likely result in the patient requiring inpatient psychiatric care which could not be prevented at a less intensive level of care. Total time managing care of this patient today __30__ minutes. Discharge Plan Discharge Attending provider: Nelly Levin Medications: New aripiprazole 5 mg tablet 5 mg PO BEDTIME Qty: 30 0RF clonazepam 0.5 mg tablet 0.25 mg PO BID Qty: 30 0RF Continued clonazepam 0.5 mg tablet 0.5 mg PO TID PRN (Reason: Anxiety) Patient Comments: Patient stated she takes as needed. Usually takes once a day. loratadine 10 mg Tablet 10 mg PO QAM diphenhydramine HCl [Benadryl] 25 mg Capsule 25 mg PO BEDTIME PRN (Reason: Insomnia) Rx Instructions: Patient alternates between taking Benadryl and Unisom. epinephrine [EpiPen] 0.3 mg/0.3 mL auto-injector 0.3 mg IM Q4H PRN (Reason: anaphylaxis) Qty: 2 0RF melatonin 1 mg Tablet 1 mg PO BEDTIME PRN (Reason: Insomnia) aripiprazole 2 mg tablet 2 mg PO DAILY Unisom SleepMelts 25 mg Tablet,Disintegrating 25 mg PO BEDTIME PRN (Reason: Insomnia) Rx Instructions: Takes when she is not taking Benadryl. Alternates between Benadryl and Unisom. fluoxetine [Prozac] 20 mg Capsule 20 mg PO DAILY Qty: 14 0RF albuterol sulfate 90 mcg/actuation HFA aerosol inhaler 1 inh inhalation QID PRN (Reason: shortness of breath or wheezing) Qty: 6.7 0RF Discontinued lithium carbonate 150 mg Capsule 150 mg PO DAILY Patient Comments: New medication, patient has not started. Waiting for provider approval s/p lab work. Stand Alone Forms: Patient Portal Discharge page Patient Education: Mood Disorders (DC) Print Language: Bolivian
--- NOTE | 2024-04-28 13:25 | HO.PHP ---
[facility] staff member contacted [facility] DCF worker, Nelly Araya, who had contacted on multiple occassions seeking information. [facility] staff member provided information around her performance in group (was activley engaged), discussed treatment plan goals (aftercare planning, reduce symptoms of anxiety, depression, PTSD by discussing precipitating factors that brought her to program, identify effective coping skills, and to meet with psychiatric provider on a weekly basis, along with abstain from alcohol use, she asked for me to send paperwork over regarding her relapse prevention planning and Nelly was informed she would have to contact medical records for that information). Nelly also asked if the program met daily and time. [facility] staff member provided that information of nine to two, Saturday through Saturday.
== END 2024-04-03 23:59 | disposition home or self-care (01) ==
LOC: HO.PHPA 14:15
PROVIDERS: Visit Provider Psychiatry & Neurology Psychiatry
DX: F34.89 Other specified persistent mood disorders (principal); F10.99 Alcohol use, unspecified with unspecified alcohol-induced disorder; F63.89 Other impulse disorders; R41.840 Attention and concentration deficit; Z79.899 Other long term (current) drug therapy
CPT/HCPCS: 90791; 90853